=== PATIENT | male | born 1940 | race Caucasian/White ===

== ENCOUNTER 2016-12-23 10:48 | Day surgery (SDC) | payer OTHER ==
--- NOTE | 2016-12-23 07:25 | History and Physical ---
History & Physical Date of Service Dec 23, 2016. History & Physical CC: End stage renal disease HPI: states he is not yet on dialysis, but he has had slowly decreasing renal function and may need it sometime in the future. The patient is currently in a motorized wheelchair and does not ambulate. The patient denies any other complaints at this time including headaches, fevers, chills, dizziness, chest pain, shortness of breath, abdominal pain, nausea, vomiting, diarrhea, constipation, dysuria, hematuria, rest pain, claudication, nonhealing wounds or ulcers or other complaints. He had a left upper arm fistula placed which is not working well. He is here for a fistulogram with possible intervention. ALLERGIES: INCLUDE BACTRIM, BYETTA, CEFTIN, CIPROFLOXACIN, CUBICIN, ERYTHROMYCIN, HUMALOG, LATEX, NITROFURANTOIN, OMEPRAZOLE, OXYCODONE, PENICILLIN , PEPCID, PREVACID, PRILOSEC, SULFA DRUGS, TESTOSTERONE, TRIMETHOPRIM, ZAROXOLYN AND ZYVOX. His home medications are reconciled on the chart and include the following: Advair Diskus, albuterol, Anju, allopurinol, calcium and vitamin D, Cozaar, Cymbalta, diltiazem hydrochloride, Lantus, levothyroxine, mesalamine, metolazone , metoprolol, NovoLog, potassium, Pravachol, torsemide, vitamin D3, warfarin and Wellbutrin. PAST MEDICAL HISTORY: Positive for chronic anemia, anxiety, asthma, atrial fibrillation, end-stage renal disease, diastolic congestive heart failure, gout , hypertension, hypothyroidism, insulin-dependent diabetes mellitus, neuropathy , allergic rhinitis and vitamin D deficiency. PAST SURGICAL HISTORY: Positive for skin shave biopsies, multiple, back surgery , cardiac ablation, cholecystectomy, hemithyroidectomy hernia repair with mesh insertion, knee replacement, left elbow surgery, nose reconstruction, repair of left eye orbit, revision of knee and tonsillectomy. FAMILY HISTORY: Positive for Alzheimer disease in his mother, diabetes and hyperlipidemia in his sister, hyperlipidemia in a brother as well. SOCIAL HISTORY: Negative for tobacco, alcohol or drug use. REVIEW OF SYSTEMS: Negative for fatigue, fevers, sweats or weight loss, abnormal moles or rashes, vision changes or photophobia, ear pain, sinus problems or sore throat, cough, shortness of breath, hemoptysis or wheezing any worse than usual for him. He denies chest pain, palpitations or syncope. He does admit some bilateral lower extremity edema, which is chronic. He denies nausea, vomiting, diarrhea, constipation, dysuria, hematuria, headaches, dizziness, numbness or seizures. PHYSICAL EXAMINATION: His vital signs today were as follows: A blood pressure of 98/62 in the right arm, 102/68 in the left arm, heart rate is 68, respiratory rate is 20, and patient is 68 inches tall and weighs 372 pounds. Constitutional: In general, the patient is morbidly obese and chronically ill- appearing elderly male in no acute distress. He is currently in his motorized wheelchair and does not ambulate. He is active, alert and oriented x4 with a pretty normal recent and remote memory. There are some details, which his provides in the history taking portion of the exam. His head is normocephalic and atraumatic. His eyes are EOMI. His ENMT exam demonstrates no hearing loss , rhinorrhea or pharyngeal erythema. His neck is supple, nontender with midline trachea without masses or crepitus. His lung exam is decreased throughout, but essentially clear. His cardiovascular exam demonstrates a nondisplaced apical impulse with a regular rate and rhythm. He does have a 2/6 systolic ejection murmur. His peripheral pulses are full and equal in all extremities unless otherwise noted. Specifically, they are normal in his carotid, brachial and radial pulses. I am unable to assess his femoral pulses due to sitting up in a chair. His bilateral lower extremities distal pulses are +1. He has no bruits in his carotid or abdominal area. I am unable to assess his abdomen is difficult to assess as well due to body habitus and the fact that he is sitting up in a chair. His musculoskeletal exam demonstrates what it seems to be a normal tone and somewhat decreased strength throughout. His bilateral upper extremities demonstrate no cyanosis, edema, clubbing, varicosities or ulcers. There is a bruit and thrill present in the left upper arm fistual. His bilateral lower extremities do demonstrate 1-2+ edema. I do not see any large ulcerations and there is no gangrene. Neurologically, the patient has grossly intact cranial nerves and grossly intact sensation. ASSESSMENT AND PLAN: End-stage renal disease, not on hemodialysis. Malfunctioning left upper arm fistula Plan : Patient is admitted for a left antecubital cephalic vein fistulogram with possible intervention. I have discussed the risks options and benefits of the procedure with the patient. The patient understands the risks options and benefits and agrees to the procedure.
[~2016-12-23 10:48] MED LIST: ADVIN50/60 INH; ALBU0.08 INH; ALL100 PO; ALLO100T PO; BUPR-79 PO; CHOL100010 PO; CLINDAMYCIN 600 MG/54 ML D5W IV ONE; CLON0.5T3 PO; CYM/60 PO; D5W AND 1/4NSS 1,000 ML IV SCH; D5W AND 1/4NSS 1000 ML IV SCH; DILT-119 PO; DMD20 PO; ECON0.05 PO; FEXO1TAB49 PO; INSDGI SC; INSUINJ14 SC; LEVO75TA5 PO; LOSA100T65 PO; METO100T14 PO; METO5TAB25 PO; MULT-190 PO; PRAV20TA PO; SENN-65 PO; VANCOMYCIN INJ 2,500 MG in SODIUM CHLORIDE 0.9% 500ML 500 ML IV ONE; VTMD PO; WARF1TAB PO
[2016-12-28] MEDS ORDERED: INSU1INJ2 SQ (10:53)
[2017-03-17] MEDS ORDERED: VNCS125 PO (12:18)
== END 2016-12-23 12:00 | disposition home or self-care (01) ==
LOC: C.ACU 10:48
PROVIDERS: ATTEND Surgery Vascular Surgery
DX: E11.22 Type 2 diabetes mellitus with diabetic chronic kidney disease (principal); I13.2 Hypertensive heart and chronic kidney disease with heart failure and with stage 5 chronic kidney disease, or end stage renal disease; N18.6 End stage renal disease; I50.30 Unspecified diastolic (congestive) heart failure; Z53.8 Procedure and treatment not carried out for other reasons; Z99.2 Dependence on renal dialysis

== ENCOUNTER 2016-12-28 09:08 | Day surgery (SDC) | payer OTHER ==
[~2016-12-28] VITALS: Ht 172.7 cm; Wt 143.0 kg
--- NOTE | 2016-12-28 06:28 | History and Physical ---
History & Physical Date of Service Dec 28, 2016. History & Physical CC: End stage renal disease HPI: states he is not yet on dialysis, but he has had slowly decreasing renal function and may need it sometime in the future. The patient is currently in a motorized wheelchair and does not ambulate. The patient denies any other complaints at this time including headaches, fevers, chills, dizziness, chest pain, shortness of breath, abdominal pain, nausea, vomiting, diarrhea, constipation, dysuria, hematuria, rest pain, claudication, nonhealing wounds or ulcers or other complaints. He had a left upper arm fistula placed which is not working well. He is here for a fistulogram with possible intervention. ALLERGIES: INCLUDE BACTRIM, BYETTA, CEFTIN, CIPROFLOXACIN, CUBICIN, ERYTHROMYCIN, HUMALOG, LATEX, NITROFURANTOIN, OMEPRAZOLE, OXYCODONE, PENICILLIN , PEPCID, PREVACID, PRILOSEC, SULFA DRUGS, TESTOSTERONE, TRIMETHOPRIM, ZAROXOLYN AND ZYVOX. His home medications are reconciled on the chart and include the following: Advair Diskus, albuterol, Anju, allopurinol, calcium and vitamin D, Cozaar, Cymbalta, diltiazem hydrochloride, Lantus, levothyroxine, mesalamine, metolazone , metoprolol, NovoLog, potassium, Pravachol, torsemide, vitamin D3, warfarin and Wellbutrin. PAST MEDICAL HISTORY: Positive for chronic anemia, anxiety, asthma, atrial fibrillation, end-stage renal disease, diastolic congestive heart failure, gout , hypertension, hypothyroidism, insulin-dependent diabetes mellitus, neuropathy , allergic rhinitis and vitamin D deficiency. PAST SURGICAL HISTORY: Positive for skin shave biopsies, multiple, back surgery , cardiac ablation, cholecystectomy, hemithyroidectomy hernia repair with mesh insertion, knee replacement, left elbow surgery, nose reconstruction, repair of left eye orbit, revision of knee and tonsillectomy. FAMILY HISTORY: Positive for Alzheimer disease in his mother, diabetes and hyperlipidemia in his sister, hyperlipidemia in a brother as well. SOCIAL HISTORY: Negative for tobacco, alcohol or drug use. REVIEW OF SYSTEMS: Negative for fatigue, fevers, sweats or weight loss, abnormal moles or rashes, vision changes or photophobia, ear pain, sinus problems or sore throat, cough, shortness of breath, hemoptysis or wheezing any worse than usual for him. He denies chest pain, palpitations or syncope. He does admit some bilateral lower extremity edema, which is chronic. He denies nausea, vomiting, diarrhea, constipation, dysuria, hematuria, headaches, dizziness, numbness or seizures. PHYSICAL EXAMINATION: His vital signs today were as follows: A blood pressure of 98/62 in the right arm, 102/68 in the left arm, heart rate is 68, respiratory rate is 20, and patient is 68 inches tall and weighs 372 pounds. Constitutional: In general, the patient is morbidly obese and chronically ill- appearing elderly male in no acute distress. He is currently in his motorized wheelchair and does not ambulate. He is active, alert and oriented x4 with a pretty normal recent and remote memory. There are some details, which his provides in the history taking portion of the exam. His head is normocephalic and atraumatic. His eyes are EOMI. His ENMT exam demonstrates no hearing loss , rhinorrhea or pharyngeal erythema. His neck is supple, nontender with midline trachea without masses or crepitus. His lung exam is decreased throughout, but essentially clear. His cardiovascular exam demonstrates a nondisplaced apical impulse with a regular rate and rhythm. He does have a 2/6 systolic ejection murmur. His peripheral pulses are full and equal in all extremities unless otherwise noted. Specifically, they are normal in his carotid, brachial and radial pulses. I am unable to assess his femoral pulses due to sitting up in a chair. His bilateral lower extremities distal pulses are +1. He has no bruits in his carotid or abdominal area. I am unable to assess his abdomen is difficult to assess as well due to body habitus and the fact that he is sitting up in a chair. His musculoskeletal exam demonstrates what it seems to be a normal tone and somewhat decreased strength throughout. His bilateral upper extremities demonstrate no cyanosis, edema, clubbing, varicosities or ulcers. There is a bruit and thrill present in the left upper arm fistual. His bilateral lower extremities do demonstrate 1-2+ edema. I do not see any large ulcerations and there is no gangrene. Neurologically, the patient has grossly intact cranial nerves and grossly intact sensation. ASSESSMENT AND PLAN: End-stage renal disease, not on hemodialysis. Malfunctioning left upper arm fistula Plan : Patient is admitted for a left antecubital cephalic vein fistulogram with possible intervention. I have discussed the risks options and benefits of the procedure with the patient. The patient understands the risks options and benefits and agrees to the procedure.
[~2016-12-28 09:08] MED LIST changes: -CLINDAMYCIN 600 MG/54 ML D5W IV ONE; +CLINDAMYCIN 600 MG/54 ML D5W IV SCH; -D5W AND 1/4NSS 1,000 ML IV SCH; +VANCOMYCIN 1GM/270ML NSS IV ONE; +VANCOMYCIN 1GM/270ML NSS IV SCH; -VANCOMYCIN INJ 2,500 MG in SODIUM CHLORIDE 0.9% 500ML 500 ML IV ONE; +[UNRECOGNIZED DRUG - REMARK] SCH
--- NOTE | 2016-12-28 09:45 | History & Physical Bridge Note ---
H&P Re-Evaluation Bridge Note: I have examined the patient, reviewed the History & Physical and in the interval since the performance of the History & Physical I have noted the following changes of clinical significance: No changes noted
--- NOTE | 2016-12-28 09:45 | Procedure Note ---
Pre-Mod Sedation Assessment General Date of Moderate Sedation: Dec 28, 2016. Pre-Sedation Airway Assessment Smoking Status: Never Smoker Mallampati Classification: Class I ASA Classification: Class III Notes The planned sedation has been discussed with the patient and consent obtained. I have identified the patient, determined the appropriateness of sedation and have assessed the patient immediately prior to the procedure. All medicine(s) and interventions are by my order.
[2016-12-28] MEDS ORDERED: NURSING VERBAL MED ORDER ONE ×2 (10:00)
[2016-12-28] MEDS ORDERED: DiphenhydrAMINE HCL 50 MG/ML VIAL ONE (10:02)
[2016-12-28] MEDS ORDERED: INSU1INJ2 (10:53)
[2016-12-28 10:56] LABS: INR 2.6 (0.9-1.1); PROTHROMBIN TIME (PATIENT) 29.1 SECONDS (9.0-12.0)
[2016-12-28] MEDS ORDERED: [UNRECOGNIZED DRUG - OTHER] PO (10:57)
[2016-12-28] MEDS ORDERED: SEVE800T7 PO (10:57)
[2016-12-28] MEDS ORDERED: B-CO1CAP3 PO (10:57)
[2016-12-28] MEDS ORDERED: [UNRECOGNIZED DRUG - CODE] (10:57)
[2016-12-28] MEDS ORDERED: B-CO1TAB73 PO (10:58)
[2016-12-28 10:59] VITALS: BP 76/60; PULSE 83; TEMP 36.5; O2SAT 92; Ht 172.7 cm; Wt 143.0 kg
[2016-12-28] MEDS ORDERED: MIDAZOLAM HCL 1 MG/ML 2ML VIAL ONE (12:29)
[2016-12-28] MEDS ORDERED: FENTANYL CITRATE INJ 50 MCG/1 ML 2 ML VIAL ONE (12:29)
[2016-12-28] MEDS ORDERED: LIDOCAINE HCL 1% 20 ML VIAL INJ ONE (13:41)
[2016-12-28] MEDS ORDERED: OPTIRAY 300 IV ONE (14:05)
--- NOTE | 2016-12-28 14:11 | [facility] Post Operative Brief Note ---
Immediate Operative Summary Operative Date Dec 28, 2016. Pre-Operative Diagnosis malfunctioning fistula Post-Operative Diagnosis same Procedure(s) Performed Fistulogram, Embolization Of Venous Branch with 12 mm Amplatz Plug Surgeon Dr. Álvarez Biological Engineer Surgeon(s) none Estimated Blood Loss 5 ml Findings large branch embolized Specimens none Anesthesia Local Complication(s) None Disposition
--- NOTE | 2016-12-28 14:14 | Discharge Instructions ---
Discharge Instructions Date of Service Dec 28, 2016. Visit Reason for Visit: End Stage Renal Disease; Malfunctioning Fistula Discharge Discharge Diagnosis / Problem: Malfunctioning fistula Discharge Goals Goal(s): Therapeutic intervention Activity Recommendations Activity Limitations: resume your previous activity Anesthesia . Post Anesthesia Instructions: If you have had General Anesthesia or IV Sedation: * Do not drive today. * Resume driving when surgeon permits. * Do not make important decisions or sign legal documents today. * Call surgeon for: 1. Temperature elevations greater than 101 degrees F. 2. Uncontrollable pain. 3. Excessive bleeding. 4. Persistent nausea and vomiting. 5. Medication intolerance (nausea, vomiting or rash). * For nausea and vomiting use only clear liquids such as: tea, soda, bouillon until nausea subsides, then gradually increase diet as tolerated. * If you have any concerns or questions, call your surgeon's office. If physician is unavailable and it is an emergency, call 911 or go to the nearest emergency room. . Instructions / Follow-Up Instructions / Follow-Up Call [phone] to schedule a follow up appointment if one not already scheduled. SPECIAL CARE INSTRUCTIONS: Medications: * Continue to take your medications as directed. If you have been given a prescription for Plavix, please fill it immediately and take as directed. Incision Care: * Your puncture site may have some bruising and minor swelling for about one week. * You will have a small dressing covering your puncture site. You may remove the dressing after 24 hours and shower. You may let the warm soapy water run over it, but be sure to dry the puncture site well and keep it dry. * DO NOT IMMERSE THE INCISION IN A TUB/POOL/etc. UNTIL HEALED. * Puncture sites should be kept covered with a band-aid until it begins to heal. Restrictions: * Depending on whether you leg or arm was punctured to access the arteries, you will be required to lay flat, hold your arm still, or both, for about 4 hours after the procedure to prevent bleeding. * Limit your activity for the first 48 hours. You may walk and go up and down steps. Avoid excessive bending or movement at the puncture site. Possible Complications: * Excessive Swelling - after blood flow is improved you may notice increased swelling in the lower legs. This is a normal response. This usually depends on the amount of blockages in the leg, how long they have been there prior to your procedure and how much blood flow was restored. Elevating your legs will help to improve this. Please notify our office ([phone] ) if the swelling does not go away after lying in bed overnight. * Infection/Drainage/Bleeding - Drainage or bleeding from the puncture site should be minimal. If you have excessive bleeding or drainage, call our office ([phone]) right away. * Pain - You may experience some mild pain or soreness at your puncture site. If your pain does not improve, please contact our office ([phone]). Call your doctor and seek emergent treatment if you develop: * Temperature above 101 degrees * Any fever or chills * Any redness or purulent drainage from the puncture site * Any new dusky/blue colored toes or feet with coolness or sharp or aching pain. SKIN IRRITATION: * You may experience some redness and/or swelling in the area where radiation was administered. If any skin irritation occurs, please contact your family physician. FOLLOW UP VISIT: Keep any scheduled doctor appointments. Diet Recommendations Recommended Home Diet: resume previous diet Procedures Procedures Performed: Fistulogram, Embolization Of Venous Branch with 12 mm Amplatz Plug Pending Studies Studies pending at discharge: no Medical Emergencies . Who to Call and When: Medical Emergencies: If at any time you feel your situation is an emergency, please call 911 immediately. . Non-Emergent Contact Non-Emergency issues call your: Surgeon . . "Provider Documentation" section prepared by Antoni Álvarez. .
[2016-12-28 14:20] VITALS: BP 97/61; PULSE 95; TEMP 36.5; O2SAT 95
--- NOTE | 2016-12-28 14:27 | [facility] Operative Report ---
Operative Report Operative Date Dec 28, 2016. Pre-Operative Diagnosis malfunctioning fistula Post-Operative Diagnosis same Procedure(s) Performed Fistulogram, Embolization Of Venous Branch with 12 mm Amplatz Plug Surgeon Dr. Álvarez Pulp Screen Operator Surgeon(s) none Estimated Blood Loss 5 ml Findings large branch embolized Specimens none Anesthesia Local Complication(s) None Disposition Indications This is a 76-year-old male with a left upper arm fistula. He is having problems with cannulation and runs during dialysis. Fistulogram was recommended. He understood the risks options benefits and agreed to go ahead with this procedure. Interventional will be done if indicated at the time of the fistulogram. Description of Procedure The patient was taken to the angiogram suite and placed in supine position. The left arm was then prepped and draped in a sterile manner. Local anesthetic was administered. A percutaneous puncture was made of the proximal left upper arm fistula using micropuncture technique. A micropuncture sheath was inserted. A fistulogram was performed. This showed the fistula be widely patent from the arterial anastomosis all the way through to the superior vena cava. A large branch was present coming off the fistula approximately 10 cm from the arterial anastomosis. This branch measured 8.8 mm in size. Patient was decided to embolize this branch of the fistula. The micropuncture sheath was then exchanged for a 5 Nepali sheath. Using a rim catheter and a Glidewire the branch was cannulated. The rim catheter is passed all the way down the branch to the basilic vein. I wire was exchanged to a 035 stiffened Glidewire. The rim catheter was removed. The 5 Nepali sheath was exchanged to a 6 Nepali destination. The destination sheath tip was in the large branch approximately just below the level of the elbow. The wire was then removed. A 12 mm Amplatzer plug was then passed through the 6 Nepali sheath and deployed into this large branch. It was deployed just below the antecubital crease. The wire was released from the plug and the wire removed. Completion fistulogram showed the plug to be in good position in the branch and abutting against the vein wall. The destination sheath was then pulled and pressure was applied. Adequate hemostasis was then obtained. A sterile dressing was applied to the wound. Patient left the angiogram suite in good condition and tolerated the procedure well. I attest to the content of the Intraoperative Record and any orders documented therein. Any exceptions are noted below.
[2016-12-28 14:35] VITALS: BP 103/63; PULSE 90; O2SAT 98
[2016-12-28 14:55] VITALS: BP 107/51; PULSE 82; TEMP 36.6; O2SAT 97
[2016-12-28 15:25] VITALS: BP 97/56; PULSE 86; O2SAT 98
== END 2016-12-28 15:30 | disposition home or self-care (01) ==
LOC: C.ACU 09:08
PROVIDERS: ATTEND Surgery Vascular Surgery
DX: T82.898A Other specified complication of vascular prosthetic devices, implants and grafts, initial encounter (principal); N18.6 End stage renal disease; I48.2 Chronic atrial fibrillation; F41.9 Anxiety disorder, unspecified; J45.909 Unspecified asthma, uncomplicated; M10.9 Gout, unspecified; I12.0 Hypertensive chronic kidney disease with stage 5 chronic kidney disease or end stage renal disease; E10.9 Type 1 diabetes mellitus without complications; E55.9 Vitamin D deficiency, unspecified; Z79.01 Long term (current) use of anticoagulants; Z90.49 Acquired absence of other specified parts of digestive tract; E89.0 Postprocedural hypothyroidism; Z96.659 Presence of unspecified artificial knee joint; Z90.89 Acquired absence of other organs; Y82.8 Other medical devices associated with adverse incidents; Z99.3 Dependence on wheelchair; Z82.49 Family history of ischemic heart disease and other diseases of the circulatory system; Z82.0 Family history of epilepsy and other diseases of the nervous system; I50.30 Unspecified diastolic (congestive) heart failure; Z79.4 Long term (current) use of insulin; E11.40 Type 2 diabetes mellitus with diabetic neuropathy, unspecified

== ENCOUNTER 2017-03-13 10:11 | Inpatient (IN) | payer OTHER ==
[~2017-03-13] VITALS: Ht 172.7 cm; Wt 136.8 kg
[~2017-03-13 10:11] MED LIST changes: -ALLO100T PO; +B-CO1CAP3 PO; +B-CO1TAB73 PO; -CHOL100010 PO; -CLINDAMYCIN 600 MG/54 ML D5W IV SCH; -CLON0.5T3 PO; -D5W AND 1/4NSS 1000 ML IV SCH; -DMD20 PO; +INSU1INJ2 SQ; -INSUINJ14 SC; -LOSA100T65 PO; -METO5TAB25 PO; -MULT-190 PO; +SEVE800T7 PO; -VANCOMYCIN 1GM/270ML NSS IV ONE; -VANCOMYCIN 1GM/270ML NSS IV SCH; +[UNRECOGNIZED DRUG - CODE]; -[UNRECOGNIZED DRUG - REMARK] SCH
[2017-03-13 14:58] VITALS: BP 105/56; PULSE 90; TEMP 36.7; O2SAT 98
[2017-03-13] MEDS ORDERED: POLYETHYLENE (MIRALAX) 17 GM PACK PO PRN (15:30)
[2017-03-13] MEDS ORDERED: ACETAMINOPHEN 325 MG TAB PO PRN (15:30)
[2017-03-13] MEDS ORDERED: DEXTROSE 50% 50 ML SYR IV PRN (15:30)
[2017-03-13] MEDS ORDERED: GLUCAGON FOR INJ 1 MG VIAL SQ PRN (15:30)
[2017-03-13] MEDS ORDERED: GLUCOSE 10 TABS/TUBE PO PRN (15:30)
[2017-03-13] MEDS ORDERED: ONDANSETRON INJ 2 MG/ML 2 ML VIAL IV PRN (15:30)
[2017-03-13] MEDS ORDERED: HEPARIN SOD 5000 UNIT/0.5 ML CARP SQ SCH (15:30)
[2017-03-13] MEDS ORDERED: GLUCOSE 40% GEL 15 GM TUBE PO PRN (15:30)
[2017-03-13 16:08] LABS: HEMATOCRIT 30.5 % (42-52); MEAN CELL VOLUME 93.3 fL (80-100); MEAN CORPUSCULAR HGB CONC 32.1 g/dl (32-36); MEAN PLATELET VOLUME 8.6 fL (7.4-10.4); PLATELET COUNT 236 K/uL (130-400); RED BLOOD COUNT 3.27 M/uL (4.7-6.1); WHITE BLOOD COUNT 7.74 K/uL (4.8-10.8)
[2017-03-13 16:24] LABS: PROTHROMBIN TIME (PATIENT) 80.3 SECONDS (9.0-12.0)
[2017-03-13 16:34] LABS: INR 6.9 (0.9-1.1)
[2017-03-13 16:41] LABS: ALB/GLOB RATIO 0.5 (0.9-2); ALKALINE PHOSPHATASE 128 U/L (45-117); ALT/SGPT 22 U/L (12-78); AST/SGOT 10 U/L (15-37); BLOOD UREA NITROGEN 49 mg/dl (7-18); BUN/CREATININE RATIO 8.3 (10-20); CALCIUM 8.8 mg/dl (8.5-10.1); CARBON DIOXIDE 30 mmol/L (21-32); CHLORIDE 101 mmol/L (98-107); GLUCOSE 199 mg/dl (70-99); POTASSIUM 3.8 mmol/L (3.5-5.1); SODIUM 138 mmol/L (136-145)
[2017-03-13] MEDS ORDERED: LORAZEPAM INJ 0.5 MG in SYRINGE 0.75 ML IV STA (16:44)
[2017-03-13] MEDS ORDERED: PHYTONADIONE 5 MG TAB PO ONE (16:45)
[2017-03-13] MEDS ORDERED: DILT-115 PO (16:55)
[2017-03-13] MEDS ORDERED: LORAZEPAM 1 MG TAB PO STA (16:58)
[2017-03-13] MEDS ORDERED: METO1TAB68 PO (17:07)
[2017-03-13] MEDS ORDERED: ATV/1 PO (17:12)
[2017-03-13 17:15] VITALS: BMI 46.9
[2017-03-13] MEDS ORDERED: SEVELAMER HYDROCH 800 MG TAB PO PRN (17:15)
[2017-03-13] MEDS ORDERED: ECONAZOLE NITRATE 1% CRM 15 GM TUBE EXT PRN (17:15)
[2017-03-13] MEDS ORDERED: DOCUSATE SODIUM/SENNA 50/8.6MG TAB PO PRN (17:15)
--- NOTE | 2017-03-13 17:16 | History and Physical ---
History & Physical Date & Time of Service: Mar 13, 2017 at 17:15 Chief Complaint: Esrd (End Stage Renal Disease) On Dialysis Primary Care Physician: Ally Oviedo History of Present Illness Source: patient, spouse, clinic records, hospital records 77 yo M who undergoes HD MWF went for HD on Tuesday and was unable to complete 4 hour dialysis session 2/2 a nonworking fistula. His give most of the history and states that he had been lying with his hand over his head and when he brought his L arm back down, there was "infiltration" of the IV that when recannulated, began bleeding. There has been reports of temporary bleeding from the fistula site with the last few HD sessions and just this morning he had some blood in his mouth that resolved when he flushed it out with water. INR was found to be 6.9, coumadin was held and he was given vitamin K. He has otherwise been asymptomatic except for some nausea and occasional vomiting with eating, for which he has been using Zofran at home. And then his also reports a foul odor and description of his urine in the last few weeks and states that he no longer self-catheterizes now that he is on HD. We discussed placing a Weinberg and the thought that was a good idea. The patient does report some lower abdominal discomfort on palpation over his bladder area and the reports a decreased urine output in the last few weeks, also. The patient denies weight gain, shortness of breath, chest pain, fevers, chills, diarrhea, blood per rectum or other symptoms at this time. Of note, he was here in December for a coil placement in the fistula when it was not working; this coil is palpable and not in the right place distal to the fistula. Past Medical/Surgical History Medical Problems: (1) Ambulatory dysfunction Status: Chronic (2) Anxiety Status: Chronic (3) Chronic diastolic (congestive) heart failure Status: Chronic (4) Current use of [facility] anticoagulation Status: Chronic (5) Depression Status: Chronic (6) DMII (diabetes mellitus, type 2) Status: Chronic (7) H/O endocarditis Status: Chronic (8) H/O spinal stenosis Status: Chronic (9) Hypothyroidism Status: Chronic (10) Neurogenic bladder Status: Chronic (11) ELLEN on CPAP Status: Chronic (12) PAF (paroxysmal atrial fibrillation) Status: Chronic (13) Vitamin D deficiency Status: Chronic Surgical Problems: (1) S/P partial thyroidectomy Status: Chronic (2) Status post total knee replacement, right Status: Chronic Family History FH: Alzheimers disease MOTHER FH: HTN (hypertension) BROTHER SISTER FH: cirrhosis SISTER FHx: myocardial infarction male first degree age known FATHER (early 60s) Social History Smoking Status: Never Smoker Smokeless Tobacco Use: No Alcohol Use: none Drug Use: none Marital Status: Housing status: lives with significant other Occupational Status: retired Immunizations History of Influenza Vaccine: Yes Influenza Vaccine Date: Mar 02, 2017 History of Tetanus Vaccine?: Yes Tetanus Immunization Date: Mar 20, 2012 History of Pneumococcal: Yes Pneumococcal Date: May 30, 2015 History of Hepatitis B Vaccine: No Multi-Drug Resistant Organisms History of MDRO: Yes Type of MDRO: MRSA Allergies Coded Allergies: Penicillins (Verified Allergy, Severe, anaphylaxis, 12/28/16) Sulfa Drugs (Verified Allergy, Severe, BACTRIM = ANAPHYLAXIS, PT TOOK DURING 12/28 ADMISSION W/O RXN, 12/28/16) Cefuroxime (Verified Allergy, Intermediate, RASH, 12/28/16) Famotidine (Verified Allergy, Intermediate, SHORTNESS OF BREATH, 12/28/16) Latex (Verified Allergy, Mild, RASH, 12/28/16) Cephalosporins (Verified Allergy, Unknown, RASH, 12/28/16) Ciprofloxacin (Verified Allergy, Unknown, RASH, 12/28/16) Clindamycin (Verified Allergy, Unknown, SHORTNESS OF BREATH, tingling, 05/06) Daptomycin (Verified Allergy, Unknown, unknown, 12/28/16) Insulin Lispro (Verified Allergy, Unknown, CAUSED HYPERGLYCEMIA, 12/28/16) Linezolid (Verified Allergy, Unknown, RASH, 12/28/16) Nitrofurantoin (Verified Allergy, Unknown, HIVES, rash, 12/28/16) Omeprazole (Verified Allergy, Unknown, loss of motor function, disoriented , 12/28/16) Oxycodone (Verified Allergy, Unknown, altered mental state, 12/28/16) Phenol (Verified Allergy, Unknown, CAUSED HYPERGLYCEMIA, 12/28/16) Trimethoprim (Verified Allergy, Unknown, impaired renal function, 12/28/16) Erythromycin (Verified Adverse Reaction, Intermediate, JAUNDICE, 12/28/16) Metolazone (Verified Adverse Reaction, Intermediate, ELEVATED BUN, pt is still taking, 12/28/16) Home Medications Scheduled Allopurinol (Zyloprim *), 100 MG PO DAILY B-Complex W/ C & Folic Acid (Renal Vitamin 0.8 mg), 1 PO HS Bupropion (Wellbutrin Sr), 300 MG PO QAM Bupropion (Wellbutrin Sr), 150 MG PO HS Diltiazem Hcl Ext Rel (Tiazac), 240 MG PO DAILY Duloxetine HCl (Cymbalta), 60 MG PO HS Ergocalciferol (Vitamin D), 1 CAP PO WK Fexofenadine Hcl (Anju Allergy), 1 TAB PO HS Fluticasone Prop/Salmeterol (Advair Diskus 500/50 60 Dose), 1 PUFF INH BID Insulin Aspart (Novolog Penfill), 0 SQ UD Insulin Glargine (Lantus), 60 UNITS SC HS Levothyroxine Sodium (Levothyroxine Sodium), 1 TAB PO QAM Metoprolol Succinate (Toprol Xl), 1 TAB PO HS Pravastatin Sodium (Pravachol), 10 MG PO HS Sevelamer Carbonate (Renvela), 2 TAB PO TID Warfarin Sodium (Coumadin), 2.5 MG PO HS [Nepo ], 1 CAN HS Scheduled PRN Albuterol Soln (Proventil 0.083% 2.5MG/3ML), 2.5 MG INH QID PRN for SOB/Wheezing Econazole Nitrate 1% (Spectazole 1%), 1 DOSE PO DAILY PRN for PRN Lorazepam (Ativan), 1 MG PO TID PRN for Anxiety/Agitation Senna/Docusate Sod (Senokot S), 1 TAB PO QAM PRN for Constipation Review of Systems At least ten systems reviewed and negative except as indicated in HPI. Physical Exam Vital Signs Date Time Temp Pulse Resp B/P (MAP) Pulse Ox O2 Delivery O2 Flow Rate FiO2 03/13/17 14:58 36.7 90 20 105/56 (72) 98 Room Air General Appearance: no apparent distress, + obese Head: normocephalic, atraumatic Eyes: normal inspection, sclerae normal Neck: no JVD, trachea midline Respiratory/Chest: lungs clear, normal breath sounds, no respiratory distress, no accessory muscle use Cardiovascular: regular rate, rhythm, no edema, no gallop, no murmur, normal peripheral pulses Abdomen/GI: normal bowel sounds, soft, + tenderness (suprapubic jerald. ) Back: + pertinent finding (could not evaluate back as patient cannot turn on his own and uses [place] lift. ) Extremities/Musculoskelatal: no pedal edema, + pertinent finding (LUE fistula with palpable thrill; palpable coil in place just distal to elbow. Large area of bruising and hardness over L biceps. 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 tested, alert, normal mood/affect, oriented x 3, + pertinent finding (decreased strength generally) Skin: normal color, warm/dry, + pertinent finding (RLE lateral malleolar wound) Diagnostics Laboratory Results 03/13/17 15:53 03/13/17 15:53 Test 03/13/17 15:53 03/13/17 16:35 03/13/17 16:37 Red Blood Count 3.27 M/uL (4.7-6.1) Mean Corpuscular Volume 93.3 fL (80-100) Mean Corpuscular Hemoglobin 30.0 pg (25-34) Mean Corpuscular Hemoglobin Concent 32.1 g/dl (32-36) RDW Standard Deviation 57.8 fL (36.4-46.3) RDW Coefficient of Variation 17.1 % (11.5-14.5) Mean Platelet Volume 8.6 fL (7.4-10.4) Nucleated RBC Absolute Count (auto) 0.04 K/uL (0-0) Nucleated Red Blood Cells % 0.5 % Prothrombin Time 80.3 SECONDS (9.0-12.0) Prothromb Time International Ratio 6.9 (0.9-1.1) Anion Gap 7.0 mmol/L (3-11) Estimated GFR () 9.7 Estimated GFR (Non- 8.4 BUN/Creatinine Ratio 8.3 (10-20) Calcium Level 8.8 mg/dl (8.5-10.1) Total Bilirubin 0.4 mg/dl (0.2-1) Aspartate Amino Transf (AST/SGOT) 10 U/L (15-37) Alanine Aminotransferase (ALT/SGPT) 22 U/L (12-78) Alkaline Phosphatase 128 U/L (45-117) Total Protein 6.4 gm/dl (6.4-8.2) Albumin 2.1 gm/dl (3.4-5.0) Globulin 4.3 gm/dl (2.5-4.0) Albumin/Globulin Ratio 0.5 (0.9-2) Bedside Glucose 194 mg/dl (70-99) Date/Time Source Procedure Growth Status 03/13/17 16:37 Urine,Catheterized Urine Culture Pending Ordered Results Past 24 Hours Test 03/13/17 15:53 03/13/17 16:35 03/13/17 16:37 03/13/17 17:12 Range/Units White Blood Count 7.74 4.8-10.8 K/uL Red Blood Count 3.27 4.7-6.1 M/uL Hemoglobin 9.8 14.0-18.0 g/dL Hematocrit 30.5 42-52 % Mean Corpuscular Volume 93.3 80-100 fL Mean Corpuscular Hemoglobin 30.0 25-34 pg Mean Corpuscular Hemoglobin Concent 32.1 32-36 g/dl RDW Standard Deviation 57.8 36.4-46.3 fL RDW Coefficient of Variation 17.1 11.5-14.5 % Platelet Count 236 130-400 K/uL Mean Platelet Volume 8.6 7.4-10.4 fL Nucleated RBC Absolute Count (auto) 0.04 0-0 K/uL Nucleated Red Blood Cells % 0.5 % Prothrombin Time 80.3 9.0-12.0 SECONDS Prothromb Time International Ratio 6.9 0.9-1.1 Sodium Level 138 136-145 mmol/L Potassium Level 3.8 3.5-5.1 mmol/L Chloride Level 101 98-107 mmol/L Carbon Dioxide Level 30 21-32 mmol/L Anion Gap 7.0 3-11 mmol/L Blood Urea Nitrogen 49 7-18 mg/dl Creatinine 5.90 0.60-1.40 mg/dl Estimated GFR () 9.7 Estimated GFR (Non- 8.4 BUN/Creatinine Ratio 8.3 10-20 Random Glucose 199 70-99 mg/dl Calcium Level 8.8 8.5-10.1 mg/dl Total Bilirubin 0.4 0.2-1 mg/dl Aspartate Amino Transf (AST/SGOT) 10 15-37 U/L Alanine Aminotransferase (ALT/SGPT) 22 12-78 U/L Alkaline Phosphatase 128 45-117 U/L Total Protein 6.4 6.4-8.2 gm/dl Albumin 2.1 3.4-5.0 gm/dl Globulin 4.3 2.5-4.0 gm/dl Albumin/Globulin Ratio 0.5 0.9-2 Bedside Glucose 194 70-99 mg/dl Microbiology Results 03/13/17 Urine Culture, Ordered Pending Diagnostic Radiology CXR pending EKG EKG pending Impression Assessment and Plan 77 yo M with ESRD on HD presents as a direct admission with a non-working fistula during HD on Tuesday. 1. Non-working fistula-uncertain of issue, has a supratherapeutic INR with reports of intermittent bleeding in recent days. There is a palpable thrill present on exam. There is a palpable coil in place just distal to the fistula. Consult Vascular Surgery for assistance. 2. ESRD-on HD. HD session on Tuesday was cut short 2/2 nonworking fistula. Nephro consulted for assistance with inpatient HD. Cont Sevelamer and renal diet. 3. Supratherapeutic INR-pt is not currently bleeding but does have bruising and reports of intermittent bleeding per over the past couple of weeks. As he is not actively bleeding at the moment, will give vit K 2.5mg now and hold warfain dosing until INR comes back into range. 4. Anemia 2/2 acute blood loss and ESRD (anemia of CKD) and ACD-no acute indication for transfusion at this time and no active bleeding. Repeat H/H in am. Normal PLTs. Holding coumadin as above. 5. Nausea with food-poss related to abdominal discomfort which appears consistent with urinary retention vs poss UTI from the description. Weinberg placed will monitor I/Os and reassess abdominal discomfort/nausea. Cont Zofran for supportive care for now. 6. Urinary retention-the pt is obese with a h/o neurogenic bladder and self- cathing ever since beginning HD. reports a foul smelling urine that is greenish and states that his urine output has decreased in recent weeks. Placing Weinberg for accurate I/Os, to relieve pressure on the abdomen and to obtain an accurate sample of urine to check for infection. 7. ELLEN-CPAP ordered 8. DMII-ISS, carb coverage and Lantus ordered. Note that weight is being done through bedscale and therefore is less accurate. Insulin may need frequent readjustment. Consulting glycemic pharmacist for recs. A1C ordered. 9. Hypothyroidism-cont Synthroid, TSH pending. 10. Chronic diastolic heart failure-compensated. DVT [id number] is contraindicated with supratherapeutic INR. Full Code-verified with patient and his on admission. Dispo-med/surg DO Seferino Rodríguez Hospitalist Level of Care Med/Surg Resuscitation Status FULL RESUSCITATION VTE Prophylaxis VTE Risk Assessment Done? Y/N: Yes Risk Level: Moderate Given or contraindicated: SCD's
[2017-03-13 17:33] VITALS: BP 105/56; PULSE 90; TEMP 36.7; O2SAT 98; Ht 172.7 cm; Wt 136.8 kg
[2017-03-13] MEDS ORDERED: LIDOCAINE HCL 2% JELLY 30 ML TUBE EXT ONE ×3 (17:52→19:46)
[2017-03-13 17:59] LABS: MAGNESIUM 2.5 mg/dl (1.8-2.4); PHOSPHORUS 2.9 mg/dl (2.5-4.9); THYROID STIMULATING HORMONE 1.26 uIu/ml (0.300-4.500)
[2017-03-13] MEDS ORDERED: PHARMACY GLYCEMIC MGMT CONSULT PRN (18:06)
--- NOTE | 2017-03-13 19:44 | Urology Consultation ---
History General Date of Service: Mar 13, 2017. Chief Complaint: Possible UTI, inability to place sanchez Primary Care Physician: Ally Oviedo Pt seen a urologist before?: Yes If yes, why?: Dr Rojas for CAP History of Present Illness 77 yo male with a history of CAP, s/p XRT, now with NGB and CIC at home. He is here due to arm pain, questionable issues with fistula for ESRD HD dependent. He is felt to have foul urine, difficulty with catheterization placement - sanchez desired for possible UTI and I&Os for renal failure. consultation requested to assist. Past notes reviewed. He notes he has been seen by Dr. Rojas this past summer for his care. He notes it has been years since his last cystoscopy, outside records not available. No new abdominal imaging this admission. Laboratory Last 24 Hours Test 03/13/17 15:53 03/13/17 16:35 03/13/17 16:37 White Blood Count 7.74 K/uL Red Blood Count 3.27 M/uL Hemoglobin 9.8 g/dL Hematocrit 30.5 % Mean Corpuscular Volume 93.3 fL Mean Corpuscular Hemoglobin 30.0 pg Mean Corpuscular Hemoglobin Concent 32.1 g/dl RDW Standard Deviation 57.8 fL RDW Coefficient of Variation 17.1 % Platelet Count 236 K/uL Mean Platelet Volume 8.6 fL Nucleated RBC Absolute Count (auto) 0.04 K/uL Nucleated Red Blood Cells % 0.5 % Prothrombin Time 80.3 SECONDS Prothromb Time International Ratio 6.9 Sodium Level 138 mmol/L Potassium Level 3.8 mmol/L Chloride Level 101 mmol/L Carbon Dioxide Level 30 mmol/L Anion Gap 7.0 mmol/L Blood Urea Nitrogen 49 mg/dl Creatinine 5.90 mg/dl Estimated GFR () 9.7 Estimated GFR (Non- 8.4 BUN/Creatinine Ratio 8.3 Random Glucose 199 mg/dl Calcium Level 8.8 mg/dl Phosphorus Level 2.9 mg/dl Magnesium Level 2.5 mg/dl Total Bilirubin 0.4 mg/dl Aspartate Amino Transf (AST/SGOT) 10 U/L Alanine Aminotransferase (ALT/SGPT) 22 U/L Alkaline Phosphatase 128 U/L Total Protein 6.4 gm/dl Albumin 2.1 gm/dl Globulin 4.3 gm/dl Albumin/Globulin Ratio 0.5 Thyroid Stimulating Hormone (TSH) 1.260 uIu/ml Bedside Glucose 194 mg/dl Past History A Fib, arthritis, cancer - prostate, congestive heart failure, COPD, depression , diabetes, GERD, renal disease, other (neurogenic bladder, CIC dependent, sleep apnea, neuropathy) Past Surgical History: cholecystectomy, tonsillectomy, other (cystoscopy, fistula, hernia, knee surgery) Family History FH: Alzheimers disease MOTHER FH: HTN (hypertension) BROTHER SISTER FH: cirrhosis SISTER FHx: myocardial infarction male first degree age known FATHER (early 60s) Social History Hx Tobacco Use In Past Year?: No Smoking: non-smoker Alcohol: no current use Marital status: Housing status: lives with significant other Occupation status: retired Immunizations History of Influenza Vaccine: Yes Influenza Vaccine Date: Mar 02, 2017 History of Tetanus Vaccine?: Yes Tetanus Immunization Date: Mar 20, 2012 History of Pneumococcal: Yes Pneumococcal Date: May 30, 2015 History of Hepatitis B Vaccine: No History of MDRO Yes Type of MDRO: MRSA Allergies Coded Allergies: Penicillins (Verified Allergy, Severe, anaphylaxis, 12/28/16) Sulfa Drugs (Verified Allergy, Severe, BACTRIM = ANAPHYLAXIS, PT TOOK DURING 12/28 ADMISSION W/O RXN, 12/28/16) Cefuroxime (Verified Allergy, Intermediate, RASH, 12/28/16) Famotidine (Verified Allergy, Intermediate, SHORTNESS OF BREATH, 12/28/16) Latex (Verified Allergy, Mild, RASH, 12/28/16) Cephalosporins (Verified Allergy, Unknown, RASH, 12/28/16) Ciprofloxacin (Verified Allergy, Unknown, RASH, 12/28/16) Clindamycin (Verified Allergy, Unknown, SHORTNESS OF BREATH, tingling, 05/06) Daptomycin (Verified Allergy, Unknown, unknown, 12/28/16) Insulin Lispro (Verified Allergy, Unknown, CAUSED HYPERGLYCEMIA, 12/28/16) Linezolid (Verified Allergy, Unknown, RASH, 12/28/16) Nitrofurantoin (Verified Allergy, Unknown, HIVES, rash, 12/28/16) Omeprazole (Verified Allergy, Unknown, loss of motor function, disoriented , 12/28/16) Oxycodone (Verified Allergy, Unknown, altered mental state, 12/28/16) Phenol (Verified Allergy, Unknown, CAUSED HYPERGLYCEMIA, 12/28/16) Trimethoprim (Verified Allergy, Unknown, impaired renal function, 12/28/16) Erythromycin (Verified Adverse Reaction, Intermediate, JAUNDICE, 12/28/16) Metolazone (Verified Adverse Reaction, Intermediate, ELEVATED BUN, pt is still taking, 12/28/16) Medications Home Medications: Home Meds and Scripts Medications Dose Route/Sig Max Daily Dose Days Date Category Dose Instructions Ativan (Lorazepam) 1 Mg Tab 1 Mg PO TID PRN 03/13/17 Reported Toprol Xl (Metoprolol Succinate) 100 Mg Tab 1 Tab PO HS 03/13/17 Reported Tiazac (Diltiazem HCl) 240 Mg Capcr 240 Mg PO DAILY 03/13/17 Reported Renal Vitamin 0.8 mg (B-Complex W/ C & Folic Acid) 1 Tab Tab 1 PO HS 12/28/16 Reported [Nepo ] 1 Can HS 12/28/16 Reported Renvela (Sevelamer Carbonate) 800 Mg Tab 2 Tab PO TID 90 12/28/16 Reported 2 WITH EACH MEAL AND 1 WITH EACH SNACK Novolog Penfill (Insulin Aspart) 100 Unit/Ml Inj 0 SQ UD 12/28/16 Reported Cymbalta (Duloxetine HCl) 60 Mg Cap 60 Mg PO HS 12/11/15 Reported Wellbutrin Sr (Bupropion HCl) 150 Mg Ertab 150 Mg PO HS 12/11/15 Reported Wellbutrin Sr (Bupropion HCl) 150 Mg Ertab 300 Mg PO QAM 12/11/15 Reported Anju Allergy (Fexofenadine Hcl) 180 Mg Tab 1 Tab PO HS 14 12/11/15 Reported Proventil 0.083% 2.5MG/3ML (Albuterol Sulfate) Nebu 2.5 Mg INH QID PRN 12/11/15 Reported Spectazole 1% (Econazole Nitrate) Cr 1 Dose PO DAILY PRN 12/11/15 Reported Coumadin (Warfarin Sodium) 1 Mg Tab 2.5 Mg PO HS 30 12/11/15 Reported Senokot S (Senna/Docusate Sodium) 1 Tab Tab 1 Tab PO QAM PRN 12/11/15 Reported Lantus (Insulin Glargine) Vial 60 Units SC HS 12/11/15 Reported Advair Diskus 500/50 60 Dose (Fluticasone Prop/Salmeterol) 1 Ea Aerp 1 Puff INH BID 12/11/15 Reported Levothyroxine Sodium 75 Mcg Tab 1 Tab PO QAM 90 12/11/15 Reported Vitamin D (Ergocalciferol) 50,000 Interunit Cap 1 Cap PO WK 12/11/15 Reported Pravachol (Pravastatin Sodium) 20 Mg Tab 10 Mg PO HS 02/09/12 Reported Zyloprim * (Allopurinol) 100 Mg Tab 100 Mg PO DAILY 01/02/10 Reported Inpatient Medications: Current Inpatient Medications Medications (Trade) Dose Ordered Sig/Venkatesh Route Start Time Stop Time Status Last Admin Dose Admin Acetaminophen (Tylenol Tab) 650 mg Q4H PRN PO 03/13/17 15:30 04/12/17 15:29 Polyethylene (Miralax Powder Packet) 17 gm DAILY PRN PO 03/13/17 15:30 04/12/17 15:29 Ondansetron HCl (Zofran Inj) 4 mg Q6H PRN IV 03/13/17 15:30 04/12/17 15:29 Glucose (Glucose 40% Gel) 15-30 GRAMS 15 GRAMS... UD PRN PO 03/13/17 15:30 04/12/17 15:29 Glucose (Glucose Chew Tab) 4-8 Tablets 4 Tabl... UD PRN PO 03/13/17 15:30 04/12/17 15:29 Dextrose (Dextrose 50% 50ML Syringe) 25-50ML OF 50% DW IV FOR... UD PRN IV 03/13/17 15:30 04/12/17 15:29 Glucagon (Glucagon Inj) 1 mg UD PRN SQ 03/13/17 15:30 04/12/17 15:29 Allopurinol (Zyloprim Tab) 100 mg HS PO 03/13/17 21:00 04/12/17 20:59 Bupropion HCl (Wellbutrin-Sr Tab) 150 mg HS PO 03/13/17 21:00 04/12/17 20:59 Bupropion HCl (Wellbutrin-Sr Tab) 300 mg QAM PO 03/14/17 09:00 04/13/17 08:59 Diltiazem HCl (TIAzac CAP) 240 mg HS PO 03/13/17 21:00 04/12/17 20:59 Duloxetine HCl (Cymbalta Cap) 60 mg HS PO 03/13/17 21:00 04/12/17 20:59 Econazole Nitrate (Econazole Nitrate 1% Crm) 1 appln DAILY PRN EXT 03/13/17 17:15 04/12/17 17:14 Fexofenadine HCl (Anju Tab) 180 mg HS PO 03/13/17 21:00 04/12/17 20:59 Salmeterol Xinafoate/ Fluticasone (Advair Diskus 500/50 Inh) 1 puff BID INH 03/13/17 21:00 04/12/17 20:59 Levothyroxine Sodium (Synthroid Tab) 75 mcg DAILYBB PO 03/14/17 06:30 04/13/17 06:29 Metoprolol Succinate (Toprol Xl Tab) 100 mg HS PO 03/13/17 21:00 04/12/17 20:59 Pravastatin Sodium (Pravachol Tab) 10 mg HS PO 03/13/17 21:00 04/12/17 20:59 Senna/Docusate Sodium (Senokot S Tab) 1 tab QAM PRN PO 03/13/17 17:15 04/12/17 17:14 Sevelamer HCl (Renagel Tab) 1,600 mg TIDM PO 03/14/17 08:00 04/13/17 07:59 Sevelamer HCl (Renagel Tab) 800 mg UD PRN PO 03/13/17 17:15 04/12/17 17:14 Lorazepam (Ativan Tab) 1 mg TID PRN PO 03/13/17 17:15 04/12/17 17:14 Insulin Glargine (Lantus Solostar Pen) SEE PROTOCOL Q12 SC 03/13/17 21:00 04/12/17 20:59 Insulin Aspart (novoLOG ASPART) SLIDING SCALE If C... ACHS ME 03/13/17 21:00 04/12/17 20:59 Miscellaneous Information (Consult Glycemic Management Pharmacy) 1 ea UD PRN N/A 03/13/17 18:06 04/12/17 18:05 Review of Systems Review of Systems Constitutional: No fever, No chills Eyes: No double vision Neurological: No passing out, No seizures Endocrine: No tired/sluggish Gastrointestinal: + nausea, + vomiting Cardiovascular: No angina Respiratory: No coughing up blood Skin: No boils, No dry skin Musculoskeletal: + arthritis Blood / Lymphatic: + bruise easily Ears / Nose / Throat: No hoarse voice Psychologic / Mental: + trouble remembering Male : + see HPI, + urinary retention Physical Exam Vital Signs: Vital Signs Past 12 Hours Date Time Temp Pulse Resp B/P (MAP) Pulse Ox O2 Delivery O2 Flow Rate FiO2 03/13/17 17:33 36.7 90 20 105/56 98 Room Air 03/13/17 14:58 36.7 90 20 105/56 (72) 98 Room Air Physical Exam: General Appearance: no apparent distress, + obese ENT: hearing grossly normal Neck: no adenopathy Respiratory/Chest: no accessory muscle use Cardiovascular: no JVD Gastrointestinal: Abdomen: normal abdomen Bladder: normal bladder Renal: normal renal Hernia: absent hernia Liver: normal liver Genitourinary - Male: Penis: circumcised (buried phallus) Urethral Meatus: normal urethral meatus Testes: normal testes Scrotum: normal scrotum Neurologic/Psychiatric: alert Skin: normal color Lymphatic: no adenopathy Assessment & Plan Assessment & Plan A/P 77 yo male with difficult sanchez, possible UTI, neurogenic bladder. 18 fr coude placed with return of small amounts of cloudy urine. Benadryl 25 mg IV provided for history of previous Latex reaction - rash, no anaphylaxis. Sanchez DC per primary service, patient performs CIC at home, can resume as per previous. Contact patient's primary urologist for prompt outpatient follow-up of his care. Thank you for allowing us to assist in the patient's acute care, please recall our service PRN any new questions or concerns.
[2017-03-13] MEDS ORDERED: DiphenhydrAMINE HCL 50 MG/ML VIAL ONE (19:47)
[2017-03-13] MEDS: BuPROPion SR 150 MG TABCR PO SCH (19:58)
[2017-03-13] MEDS: FLUTICASONE/SALMETEROL (ADVAIR) 500/50 INH 14 PUFF INH SCH (19:59)
[2017-03-13] MEDS: ALLOPURINOL 100 MG TAB PO SCH (19:59)
[2017-03-13] MEDS: PRAVASTATIN SOD 10 MG TAB PO SCH (20:00)
[2017-03-13] MEDS: METOPROLOL SUCC 50MG EXT REL TAB PO SCH (20:00)
[2017-03-13] MEDS: FEXOFENADINE HCL 180 MG TAB PO SCH (20:00)
[2017-03-13] MEDS ORDERED: NURSING VERBAL MED ORDER ONE (20:00)
[2017-03-13] MEDS: DILTIAZEM HCL 120 MG EXT REL CAP PO SCH (20:04)
[2017-03-13] MEDS: DULOXETINE HCL 60 MG CAP PO SCH (20:05)
[2017-03-13 20:09] VITALS: BP 112/71; PULSE 106
[2017-03-13] MEDS: INSULIN GLARGINE SOLOSTAR 100 UNITS/ML 3 ML PEN SC SCH (20:54)
[2017-03-13] MEDS: INSULIN ASPART 100 UNITS/ML 3 ML PEN SC SCH (20:55)
[2017-03-13] MEDS ORDERED: FOLIC ACID PO SCH (21:00)
[2017-03-13] MEDS ORDERED: ASCORBIC ACID PO SCH (21:00)
[2017-03-13] MEDS ORDERED: B COMPLEX PO SCH (21:00)
--- NOTE | 2017-03-13 21:46 | DIAGNOSTIC IMAGING REPORT ---
L VENOUS DOPPLER UPR EXT UNI HISTORY: Pain. Edema. hematoma with hard area of induration, supratherap INR. COMPARISON STUDY: None. FINDINGS: The internal jugular vein is patent. There is normal flow within the subclavian vein. There is normal flow and compressibility within the left axillary, basilic, brachial, radial, ulnar, and visualized cephalic veins. Fistula in the left upper extremity is patent IMPRESSION: No DVT within the upper extremity. The fistula is patent The above report was generated using voice recognition software. It may contain grammatical, syntax or spelling errors. Electronically signed by: Walter Santamaria M.D. 03/13/2017 9:45 PM Dictated Date/Time: 03/13/2017 9:44 PM
--- NOTE | 2017-03-13 21:50 | DIAGNOSTIC IMAGING REPORT ---
L EXTREMITY NONVASCULAR LIMITED CLINICAL HISTORY: LUE bruised area of induration, US to characterize lesion TECHNIQUE: Ultrasound COMPARISON STUDY: None FINDINGS: Within the left biceps area is a 1.8 x 2 x 1.5 cm hypoechoic collection and/or hematoma. It is surrounded by moderate edematous tissue. Margins are somewhat irregular and components potentially relate to fibrous tissue. The fistula is patent. IMPRESSION: The area of bruising/palpable nodularity appears to represent a complex combination of hematoma, fibrous tissue, and simple edematous change. The fistula is patent. Dimensions at maximum are 1.8 x 2.0 x 1.5 cm. The above report was generated using voice recognition software. It may contain grammatical, syntax or spelling errors. Electronically signed by: Walter Santamaria M.D. 03/13/2017 9:48 PM Dictated Date/Time: 03/13/2017 9:45 PM
--- NOTE | 2017-03-13 21:51 | DIAGNOSTIC IMAGING REPORT ---
CHEST 1 VW FRONT-NOT PORTABLE CLINICAL HISTORY: ADMISSION CXR, PT WITH H/O HEART FAILURE ON HD W/ CLOTTED FISTUL COMPARISON STUDY: No previous studies for comparison. FINDINGS: Moderate cardiomegaly. Diaphragms smooth. Lungs are clear. IMPRESSION: Cardiomegaly. Otherwise negative study The above report was generated using voice recognition software. It may contain grammatical, syntax or spelling errors. Electronically signed by: Walter Santamaria M.D. 03/13/2017 9:50 PM Dictated Date/Time: 03/13/2017 9:49 PM
[2017-03-13 22:40] VITALS: BP 108/68; PULSE 100; TEMP 36.7; O2SAT 95
[2017-03-13 23:34] VITALS: PULSE 97; O2SAT 96
[2017-03-13 23:38] VITALS: PULSE 97; O2SAT 96
[2017-03-14] VITALS (10 sets, daily range): BP systolic 79–103; BP diastolic 52–64; PULSE 62–92; TEMP 36.2–36.6; O2SAT 93–97
[2017-03-14] MEDS ORDERED: INSULIN ASPART 100 UNITS/ML 3 ML PEN SC ONE (02:00)
[2017-03-14 07:21] LABS: HEMATOCRIT 29.7 % (42-52); MEAN CELL VOLUME 93.7 fL (80-100); MEAN CORPUSCULAR HEMOGLOBIN 28.7 pg (25-34); MEAN CORPUSCULAR HGB CONC 30.6 g/dl (32-36); MEAN PLATELET VOLUME 9.1 fL (7.4-10.4); PLATELET COUNT 259 K/uL (130-400); RED BLOOD COUNT 3.17 M/uL (4.7-6.1); WHITE BLOOD COUNT 7.95 K/uL (4.8-10.8)
[2017-03-14 07:33] LABS: PROTHROMBIN TIME (PATIENT) 58.9 SECONDS (9.0-12.0)
[2017-03-14 07:35] LABS: INR 5.1 (0.9-1.1)
[2017-03-14 07:56] LABS: BUN/CREATININE RATIO 8.4 (10-20); CALCIUM 8.6 mg/dl (8.5-10.1); CREATININE 6.6 mg/dl (0.60-1.40); MAGNESIUM 2.8 mg/dl (1.8-2.4); PHOSPHORUS 3.3 mg/dl (2.5-4.9)
[2017-03-14] MEDS: INSULIN ASPART 100 UNITS/ML 3 ML PEN SC SCH ×4 (08:01→21:44)
[2017-03-14] MEDS: BuPROPion SR 150 MG TABCR PO SCH ×2 (08:05→20:32)
[2017-03-14] MEDS: FLUTICASONE/SALMETEROL (ADVAIR) 500/50 INH 14 PUFF INH SCH ×2 (08:06→20:30)
[2017-03-14] MEDS: SEVELAMER HYDROCH 800 MG TAB PO SCH ×3 (08:06→16:50)
[2017-03-14] MEDS: INSULIN GLARGINE SOLOSTAR 100 UNITS/ML 3 ML PEN SC SCH ×2 (08:08→21:45)
[2017-03-14] MEDS: LEVOTHYROXINE 75 MCG TAB PO SCH (08:13)
[2017-03-14 08:31] LABS: ESTIMATED AVERAGE GLUCOSE 163 mg/dl; HA1C FLAG Normal (Normal)
--- NOTE | 2017-03-14 08:34 | NEPHROLOGY CONSULTATION ---
DATE OF CONSULTATION: 03/14/2017 ATTENDING OF RECORD: Dr. Nguyen. REASON FOR CONSULTATION: End-stage renal disease. HISTORY OF PRESENT ILLNESS: This is a 77-year-old male who dialyzes on Mondays, Wednesdays, and Fridays at the [facility]. The patient is currently bed bound for the past year and a half and has been on dialysis for the past year. The patient states he has no balance and leg weakness secondary to a pinched nerve in his back. The patient also states he is on blood thinners with a history of paroxysmal AFib. He also has a neurogenic bladder and at times, has difficulty with urination. The patient was having foul smelling urine and had a Weinberg placed by urology, which drained about 500 mL of foul smelling urine and then had hematuria afterwards in the setting of an elevated INR. INR was elevated at 6.9. The Coumadin was stopped and the patient was given vitamin K. In terms of his dialysis access, he has had infiltrations of his fistula as well as prolonged bleeding at times from his fistula sites. Dr. Álvarez has been consulted to look at the fistula further. The patient is comfortable. He states he has had decreased appetite for a quite some time and has lost over 100 pounds. REVIEW OF SYSTEMS: Positive anorexia. Positive 100-pound weight loss. Positive bedbound. No headaches. No blurry vision. No dysphagia. No rash. No itching. No chest pain. No shortness of breath. No nausea or vomiting. Still urinates. No diarrhea or constipation. All other review of systems otherwise negative. PAST MEDICAL HISTORY: End-stage renal disease, paroxysmal atrial fibrillation on Coumadin, depression, type 2 diabetes, spinal stenosis, hypothyroidism, and obstructive sleep apnea on CPAP. PAST SURGICAL HISTORY: Fistula placements, right total knee replacement, and partial thyroidectomy. FAMILY HISTORY: Significant for hypertension. SOCIAL HISTORY: No smoking, no alcohol, and no drugs. Lives at home with his . CURRENT MEDICATIONS: Wellbutrin 300 mg daily, Renagel 1600 mg t.i.d. with meals, Synthroid 75 mcg daily, allopurinol 100 mg at night, Wellbutrin 150 mg at night, diltiazem 240 mg at night, Cymbalta 60 mg at night, Anju 180 mg at night, Advair inhaler twice a day, Toprol-XL 100 mg at night, Pravachol 10 mg at night, and sliding scale insulin. PHYSICAL EXAMINATION: VITAL SIGNS: Temperature 36.7, pulse 97, respiratory rate 14, blood pressure 108/68, and satting 96% on room air. GENERAL: Awake, alert, and oriented x3, obese. EYES: No scleral icterus. ENT: Moist mucous membranes. NECK: Supple. PULMONARY: Clear to auscultation. CARDIAC: Regular rate and rhythm. ABDOMEN: Bowel sounds positive. Soft and nontender. EXTREMITIES: No significant clubbing, cyanosis or edema. NEUROLOGICALLY: Bedbound with leg weakness. GENITOURINARY: Positive Weinberg with some hematuria. LABORATORIES: Pending for this morning. Yesterday afternoon, white count 7, H&H 9.8 and 30.5, and platelet count 236. INR was 6.9. This morning's are pending. Sodium level 138, potassium 3.8, chloride is 101, bicarb is 30, BUN is 49, creatinine is 5.9, glucose 199, calcium is 8.8, and magnesium level is 2.5. Albumin is 2.1. TSH 1.26. Chest x-ray showed cardiomegaly, otherwise negative study. Extremity ultrasound showed complex hematoma, 1.8 cm. Fistula is patent. IMPRESSION AND PLAN: 1. End-stage renal disease. The patient is with fistula with good bruit and thrill. He did have an infiltration and has a significant hematoma above the fistula. Although still patent. Currently n.p.o. this morning and Dr. Álvarez has been consulted for further evaluation of the fistula. INR was elevated at 6.9. Coumadin has been held and vitamin K has been given. Awaiting this morning's INR. 2. Anemia of renal failure. Hemoglobin level 9.8. This morning's are pending. 3. End-stage renal disease. We will hold off on dialysis today given the infiltrated fistula with hematoma. We will await Dr. Álvarez's recommendations before attempting dialysis. Volume status and electrolytes appears stable. The patient is comfortable. Okay to hold off on dialysis today if medically necessary. I appreciate the consultation.
--- NOTE | 2017-03-14 10:42 | Pharmacy Progress Note ---
Glycemic Control Intl Consult Date of Service Mar 14, 2017. Scope Glycemic Pharmacist consulted by Dr Arredondo on 03/13/17 for glycemic control and to write orders per [facility] inpatient glycemic control protocol Objective Weight (Kilograms): 136.800 Accuchecks BSG (last 24hrs): Test 03/13/17 15:53 03/13/17 16:35 03/13/17 19:51 03/14/17 01:37 Random Glucose 199 mg/dl (70-99) Bedside Glucose 194 mg/dl (70-99) 163 mg/dl (70-99) 181 mg/dl (70-99) Test 03/14/17 06:46 03/14/17 07:26 Random Glucose 162 mg/dl (70-99) Bedside Glucose 157 mg/dl (70-99) Laboratory Data (last 24hrs) Test 03/13/17 15:53 03/14/17 06:46 Anion Gap 7.0 mmol/L 11.0 mmol/L BUN/Creatinine Ratio 8.3 8.4 Blood Urea Nitrogen 49 mg/dl 54 mg/dl Creatinine 5.90 mg/dl 6.60 mg/dl Potassium Level 3.8 mmol/L 4.0 mmol/L Sodium Level 138 mmol/L 137 mmol/L White Blood Count 7.74 K/uL 7.95 K/uL Hemoglobin A1c 7.3 % HbA1c Test 03/14/17 06:46 Hemoglobin A1c 7.3 % (4.5-5.6) H * However, this result is likely somewhat unreliable in ESRD patients d/t interactions between the A1c analyzing technique and high levels of urea in ESRD , reduced RBC life span, iron deficiency anemia, and EPO administration. HbA1c > 7.5% in ESRD patient may overestimate the extent of hyperglycemia in ESRD patients. Recent Pertinent Medications Outpatient Anti-diabetic Regimen: * Lantus 60 - 80 units SQ HS based on BSG * 60 units with HS BSG 140 - 160mg/dl * 70 units with HS BSG ~160 - 200mg/dl * 80 units with HS BSG 200+ * However, reports hypo with outpatient regimen 2-3x/week * NovoLog "scale" AC * 7, 15, 20 units based on BSG & meal The patient is currently receiving: * Basal insulin: Lantus 20 units every 12 hours * Correctional Insulin: Novolog Correction per scale ACHS Goal Range: Low 140 mg/dL - High 180 mg/dL Correction Factor: 30 mg/dL/unit * Prandial insulin: Per carb ratio of 1 unit per 11 grams CHO consumed Assessment & Plan ASSESSMENT: * 77yo T2DM male with presumed inadequate degree of outpatient control secondary to reported frequent hypoglycemia * Outpatient basal insulin dosing may need to be decreased as pt is reporting hypoglycemia 2-3 times per week * Pt currently NPO, will likely need reduced outpatient dosing * ADA & AACE recommend a goal blood sugar range 140-180 mg/dl for the majority of critically ill & non-critically ill patients. However, more stringent targets may be selected in individual cases. Will use a slightly more stringent goal range of 120-150mg/dl to maintain BSGs in 140-180mg/dl range. PLAN FOR INPATIENT GLYCEMIC CONTROL: * Basal insulin * Lantus 20 units SQ BID * Pt uses 60-80 units/day as an outpatient so this is reduced outpatient dosing for NPO & hypo as an outpatient * Bolus insulin * NovoLog per scale ACHS or Q6hrs while NPO * Goal Range: Low 120 mg/dL - High 150 mg/dL * Correction Factor: 20 mg/dL/unit * Nutritional / Prandial insulin per carb ratio of 1 unit per 7 grams CHO consumed * Please note that the plan above was derived based on current level of insulin resistance and hospital stress. These recommendations are appropriate for inpatient admission only. Plan of care upon discharge will need to be reassessed to avoid potential outpatient hypo/hyperglycemia. Thank you.
--- NOTE | 2017-03-14 11:04 | Surgery Consultation ---
Consultation Date of Service Mar 14, 2017. (Melissa Weiss, DAVION) Chief Complaint malfunctioning AVF LUE (Melissa Weiss, DAVION) History of Present Illness The patient is a 77 year old male with multiple medical problems, including ESRD on HD, a fib, CAD, HTN, DMII, spinal stenosis, known to Dr Álvarez for HD access, seen in consultation today d/t concerns regarding his LUE AVF. Pt had LUE AC cephalic v AVF created in november 2015, then underwent fistulagram in December 2016 during which an amplatzer plug was placed in a large branch. Pt had been dialyzing well but having prolonged bleeding after needles removed. Last libertad at HD, pt moved his arm, causing his AV access needles to infiltrate. Pt was admitted to [facility] yesterday and found to have INR of 6.9 and hematuria. Pt denies any complaints presently. Denies LOVE, fever, chills, chest pain,SOB, abd pain, N/V, rest pain, claudication, other complaints. INR this AM 5.1. (Melissa Weiss, DAVION) Vitals Vital Signs Past 12 Hours Date Time Temp Pulse Resp B/P (MAP) Pulse Ox O2 Delivery O2 Flow Rate FiO2 03/14/17 08:15 Room Air 03/14/17 08:13 95 Room Air 03/14/17 07:49 36.4 82 12 79/52 (61) 95 Room Air 03/14/17 00:00 96 Room Air 03/13/17 23:38 97 14 96 CPAP 03/13/17 23:34 97 96 (Melissa Weiss, DAVION) Allergies Coded Allergies: Penicillins (Verified Allergy, Severe, anaphylaxis, 12/28/16) Sulfa Drugs (Verified Allergy, Severe, BACTRIM = ANAPHYLAXIS, PT TOOK DURING 12/28 ADMISSION W/O RXN, 12/28/16) Cefuroxime (Verified Allergy, Intermediate, RASH, 12/28/16) Famotidine (Verified Allergy, Intermediate, SHORTNESS OF BREATH, 12/28/16) Latex (Verified Allergy, Mild, RASH, 12/28/16) Cephalosporins (Verified Allergy, Unknown, RASH, 12/28/16) Ciprofloxacin (Verified Allergy, Unknown, RASH, 12/28/16) Clindamycin (Verified Allergy, Unknown, SHORTNESS OF BREATH, tingling, 05/06) Daptomycin (Verified Allergy, Unknown, unknown, 12/28/16) Insulin Lispro (Verified Allergy, Unknown, CAUSED HYPERGLYCEMIA, 12/28/16) Linezolid (Verified Allergy, Unknown, RASH, 12/28/16) Nitrofurantoin (Verified Allergy, Unknown, HIVES, rash, 12/28/16) Omeprazole (Verified Allergy, Unknown, loss of motor function, disoriented , 12/28/16) Oxycodone (Verified Allergy, Unknown, altered mental state, 12/28/16) Phenol (Verified Allergy, Unknown, CAUSED HYPERGLYCEMIA, 12/28/16) Trimethoprim (Verified Allergy, Unknown, impaired renal function, 12/28/16) Erythromycin (Verified Adverse Reaction, Intermediate, JAUNDICE, 12/28/16) Metolazone (Verified Adverse Reaction, Intermediate, ELEVATED BUN, pt is still taking, 12/28/16) Home Medications Scheduled Allopurinol (Zyloprim *), 100 MG PO DAILY B-Complex W/ C & Folic Acid (Renal Vitamin 0.8 mg), 1 PO HS Bupropion (Wellbutrin Sr), 300 MG PO QAM Bupropion (Wellbutrin Sr), 150 MG PO HS Diltiazem Hcl Ext Rel (Tiazac), 240 MG PO DAILY Duloxetine HCl (Cymbalta), 60 MG PO HS Ergocalciferol (Vitamin D), 1 CAP PO WK Fexofenadine Hcl (Anju Allergy), 1 TAB PO HS Fluticasone Prop/Salmeterol (Advair Diskus 500/50 60 Dose), 1 PUFF INH BID Insulin Aspart (Novolog Penfill), 0 SQ UD Insulin Glargine (Lantus), 60 UNITS SC HS Levothyroxine Sodium (Levothyroxine Sodium), 1 TAB PO QAM Metoprolol Succinate (Toprol Xl), 1 TAB PO HS Pravastatin Sodium (Pravachol), 10 MG PO HS Sevelamer Carbonate (Renvela), 2 TAB PO TID Warfarin Sodium (Coumadin), 2.5 MG PO HS [Nepo ], 1 CAN HS Scheduled PRN Albuterol Soln (Proventil 0.083% 2.5MG/3ML), 2.5 MG INH QID PRN for SOB/Wheezing Econazole Nitrate 1% (Spectazole 1%), 1 DOSE PO DAILY PRN for PRN Lorazepam (Ativan), 1 MG PO TID PRN for Anxiety/Agitation Senna/Docusate Sod (Senokot S), 1 TAB PO QAM PRN for Constipation Problem List Medical Problems: (1) Ambulatory dysfunction (2) Anxiety (3) Chronic diastolic (congestive) heart failure (4) Current use of fpc anticoagulation (5) Depression (6) DMII (diabetes mellitus, type 2) (7) ESRD (end stage renal disease) on dialysis (8) H/O endocarditis (9) H/O spinal stenosis (10) Hypothyroidism (11) Neurogenic bladder (12) ELLEN on CPAP (13) PAF (paroxysmal atrial fibrillation) (14) Vitamin D deficiency Surgical Problems: (1) S/P partial thyroidectomy (2) Status post total knee replacement, right (Melissa eWiss, PATIENCEC) Surgical / Medical History Hx Cardiac Surgery: No Hx Abdominal Surgery: Yes (Hernia repair, gallbladder,) Hx Cancer Surgery: Yes (nose ) Hx Thoracic Surgery: No Hx Orthopedic: Yes (right hip, back, right knee) Hx Urinary Tract Surgery: Yes (LITHOTRIPSY, CYSTO) HX Other Surgery: No Past Medical/Surgical History: Cancer, Diabetes, Heart Disease, High Cholesterol, Hypertension, Kidney Disease (Melissa Weiss, PANicoleC) Family History FH: Alzheimers disease MOTHER FH: HTN (hypertension) BROTHER SISTER FH: cirrhosis SISTER FHx: myocardial infarction male first degree age known FATHER (early 60s) (Melissa Weiss, PA-C) FH: Alzheimers disease MOTHER FH: HTN (hypertension) BROTHER SISTER FH: cirrhosis SISTER FHx: myocardial infarction male first degree age known FATHER (early 60s) (Antoni Álvarez M.D.) Social History Smoking Status: Never Smoker Hx Tobacco Use In Past Year?: No Hx Alcohol Use - Type & Amnt: No Hx Substance Use -Type & Amnt: No (Melissa Weiss, PATIENCEC) Review of Systems Constitutional: + malaise, No chills, No fever Skin: No change in color Eyes: No visual changes ENMT: No sore throat Respiratory: No cough, No REYNOLDS, No hemoptysis, No short of breath Cardiovascular: No chest pain, No palpitations, No edema, No intermittent claudication Gastrointestinal: No abdominal pain, No nausea, No vomiting Neurologic: No dizziness, No lethargy, No numbness, No tingling (Melissa Weiss, PATIENCEC) Physical Exam Constitutional: General Apperance: well-nourished, well-developed, obese Level of Distress: chronically ill Psychiatric: Mental Status: abnormal affect (flat), lethargic, confused (mildly) Orientation: oriented except where noted, to time, to place, to person Memory: recent memory abnormal (vague, poor historian) Head: normocephalic, atraumatic Eyes: EOM: EOMI ENMT: normal ENT inspection, hearing grossly normal Neck: supple, trachea midline Lungs: Respiratory effort: no dyspnea Auscultation: no rales/crackles, no rhonchi, decreased breath sounds Cardiovascular: Apical Impulse: not displaced Heart Auscultation: no rubs, no gallops, pertinent finding (irregular) Peripheral Pulses: Pulses: full and equal, in all extremities except if noted Bruits: none appreciated Carotid Pulse: normal on the left, normal on the right Brachial Pulses: normal on the left, normal on the right, pertinent finding (LUE AVF with + thrill/bruit throughout his AVF, large hematoma noted in center. ) Radial Pulse: normal on the left, normal on the right Femoral Pulse: normal on the left, normal on the right Posterior Tibialis Pulse: decreased on the left, decreased on the right Dorsalis Pedis Pulse: decreased on the left, decreased on the right Abdomen: Bowel Sounds: normal Inspection & Palpation: soft, no tenderness, guarding & rebound, distended ( d/t body habitus) Extremities: Upper Right: no cyanosis, no edema, no varicosities Upper Left: no cyanosis, no edema, no varicosities Lower Right: no cyanosis, no varicosities, no palpable cord, edema Lower Left: no cyanosis, no varicosities, no palpable cord, edema Neurologic: Cranial Nerves: grossly intact (Melissa Weiss, PA-C) Assessment and Plan ASSESSMENT and PLAN: ESRD on HD Pt appears to have hematoma in LUE at location of recent infiltration. AVF remains patent, verified by US. Amplazter plug appears in proper position. No indications for vascular surgical intervention at this time. Recommend attempted use of AVF for HD. If unable to access, may require permcath insertion until hematoma resolves, but cannot be placed until INR near 2. Please call if needed. (Melissa Weiss, PA-C) Patient was seen, examined, and chart reviewed. Agree with exam and treatment plan of the Vascular PA. Thank you very much for letting me participate in the care of this patient. (Antoni Álvarez M.D.)
[2017-03-14] MEDS ORDERED: PHYTONADIONE 5 MG TAB PO ONE ×2 (11:30→20:00)
[2017-03-14 18:54] LABS: INR 3.5 (0.9-1.1); PROTHROMBIN TIME (PATIENT) 39.8 SECONDS (9.0-12.0)
[2017-03-14] MEDS: ALLOPURINOL 100 MG TAB PO SCH (20:32)
[2017-03-14] MEDS: DULOXETINE HCL 60 MG CAP PO SCH (20:32)
[2017-03-14] MEDS: METOPROLOL SUCC 50MG EXT REL TAB PO SCH (20:33)
[2017-03-14] MEDS: PRAVASTATIN SOD 10 MG TAB PO SCH (20:33)
[2017-03-14] MEDS: DILTIAZEM HCL 120 MG EXT REL CAP PO SCH (20:34)
[2017-03-14] MEDS: FEXOFENADINE HCL 180 MG TAB PO SCH (20:37)
--- NOTE | 2017-03-14 22:49 | Progress Note ---
Internal Med Progress Note Date of Service: Mar 14, 2017. Provider Documentation: SUBJECTIVE: pt offers no complain , denies of any pain or discomfort, no bleeding noted form the fistula site no complain of SOB or discomfort Weinberg placed by Urology earlier -has scant amount of bloody drainage in bag no fever or chills pt's remains very anxious regarding what is plan for dialysis , and whether fistula needs to be removed pt gets very anxious with needles stick , asking about perm Cath could be better option pt and counselled -increased bleeding form fistula while attempt to dialysis happened due to elevated INR > 5 apparently fistula is functioning well as per Doppler study and vascular surgery evaluation mild hematoma around fistula site should be resolved as coagulopathy /INR improves with Vit K pt is updated that Perm cath has higher rate of infection , bleeding and clot than fistula , if his fistula remains operative , having a second HD access will not be beneficial OBJECTIVE: Vital Signs-as noted below Exam: General-obese ,completely bed bound , no discomfort noted Eyes-sclera non icteric ENT-NAd Neck-no JVD Lungs-diminished, Heart-regular Abdomen-soft, distended Extremities-left mid arm -Fistula -+ bruit + thrill Neuro-flat affect, no focal deficit Lab data as noted below. ASSESSMENT & PLAN: COAGULOPATHY : on Coumadin for chronic Afib presents with INR ~6 , bleeding at AV fistular site at HD center while attempt to cannulate given VIt K 2.5 yesterday INR remains elevated ~5 ordered for vt K 5 mg and repeat INR in afternoon possible reason for elevated INR -poor PO intake ( mentions pt has extremely poor appetite , complains of metallic taste with each food /poor clearance due to ESRD ) pt will need close follow up with coagulation clinic on discharge Coumadin dose should be resumed to 1 mg daily as INR falls below 2 ( was on Coumadin 2.5 ) ESRD ON HD : follows with Dr Scherer missed HD on Tuesday for bleeding at fistula site appreciate input form Nephrology /vascular surgery -left arm AV fistula appears to be functioning small amount of hematoma due to elevated INR in agreement with Vit k to reverse the coagulopathy pt appears to be stable on vol no evidence of electrolyte derangements hold HD today for INR < 5 plan for re evaluate and resume HD via left arm AV fistula as iNR < 3 ANXIETY DISORDER : mentions pt gets anxiety attach each time getting dialysis as they cannulate the fistula pt hates needles , gets panic attack with blood draw has been ordered for PRN Ativan prior to HD requesting for Ativan PRN during other days of week as pt appears to be restless , irritated and can not sleep with anticipation of next HD reviewed [place] PD[place] site -pt has been getting intermittent dose of Ativan 1 mg for anxiety from his family physician last prescription filled was on 02/26/17 for Ativan 1 mg BID prn #20 tablets pt given script for 0.5 mg PO BID PRN , asked to use 1/2 of the prior tables as with ESRD pt may need less dose but more frequent specially after dialysis pt will need to follow up with Psychiatry as out pt for significant anxiety and depression issues DVT PROPHYLAXIS INR elevated DISPOSITION lives at home , bed bound requires complete care will need transport arrangement to return home on discharge social service consulted for discharge planning follows with [facility] follow up with Dr Aura Scherer Vital Signs: Date Time Temp Pulse Resp B/P (MAP) Pulse Ox O2 Delivery O2 Flow Rate FiO2 03/15/17 08:31 36.6 73 18 93/57 (69) 92 03/15/17 08:09 Room Air 03/15/17 03:55 36.5 62 16 101/53 (69) 96 03/14/17 23:40 36.3 62 18 96/52 (67) 93 03/14/17 22:47 96 Room Air 03/14/17 22:10 92 97 03/14/17 21:00 88 103/63 (76) 03/14/17 20:20 36.6 87 19 95/59 (71) 93 Room Air 03/14/17 16:15 Room Air 03/14/17 15:28 36.2 88 16 94/59 (71) 97 03/14/17 12:00 36.4 81 12 98/64 (75) 96 Room Air Lab Results: Results Past 24 Hours Test 03/14/17 11:21 03/14/17 16:51 03/14/17 18:33 03/14/17 20:41 Range/Units Bedside Glucose 128 135 134 70-99 mg/dl Prothrombin Time 39.8 9.0-12.0 SECONDS Prothromb Time International Ratio 3.5 0.9-1.1 Test 03/15/17 08:16 03/15/17 08:22 Range/Units Prothrombin Time 22.2 9.0-12.0 SECONDS Prothromb Time International Ratio 2.0 0.9-1.1 Bedside Glucose 135 70-99 mg/dl
[2017-03-15] VITALS (18 sets, daily range): BP systolic 90–113; BP diastolic 38–64; PULSE 62–100; TEMP 36.4–36.9; O2SAT 92–96
[2017-03-15] MEDS: LEVOTHYROXINE 75 MCG TAB PO SCH (05:57)
--- NOTE | 2017-03-15 06:44 | Nephrology Progress Note ---
Nephrology Progress Note Date of Service: Mar 15, 2017. Subjective 77 yo male with bleeding issues from fistula with significant hematoma and found to have elevated inr. inr is trending down. pt also had foul smelling urine requiring sanchez catheter insertion. has some residual hematuria. pt comfortable. no complaints. Objective Date Time Temp Pulse Resp B/P (MAP) Pulse Ox O2 Delivery O2 Flow Rate FiO2 03/15/17 03:55 36.5 62 16 101/53 (69) 96 03/14/17 23:40 36.3 62 18 96/52 (67) 93 03/14/17 22:47 96 Room Air 03/14/17 22:10 92 97 03/14/17 21:00 88 103/63 (76) 03/14/17 20:20 36.6 87 19 95/59 (71) 93 Room Air 03/14/17 16:15 Room Air 03/14/17 15:28 36.2 88 16 94/59 (71) 97 03/14/17 12:00 36.4 81 12 98/64 (75) 96 Room Air 03/14/17 08:15 Room Air 03/14/17 08:13 95 Room Air 03/14/17 07:49 36.4 82 12 79/52 (61) 95 Room Air Physical Exam: General-aaox3, obese Eyes-no scleral icterus ENT-mmm Neck-supple Lungs-cta Heart-rrr Abdomen-bs+ s/nt/nd Extremities-+1 edema Neuro-bedbound Current Inpatient Medications Medications (Trade) Dose Ordered Sig/Venkatesh Route Start Time Stop Time Status Last Admin Dose Admin Acetaminophen (Tylenol Tab) 650 mg Q4H PRN PO 03/13/17 15:30 04/12/17 15:29 Polyethylene (Miralax Powder Packet) 17 gm DAILY PRN PO 03/13/17 15:30 04/12/17 15:29 Ondansetron HCl (Zofran Inj) 4 mg Q6H PRN IV 03/13/17 15:30 04/12/17 15:29 Glucose (Glucose 40% Gel) 15-30 GRAMS 15 GRAMS... UD PRN PO 03/13/17 15:30 04/12/17 15:29 Glucose (Glucose Chew Tab) 4-8 Tablets 4 Tabl... UD PRN PO 03/13/17 15:30 04/12/17 15:29 Dextrose (Dextrose 50% 50ML Syringe) 25-50ML OF 50% DW IV FOR... UD PRN IV 03/13/17 15:30 04/12/17 15:29 Glucagon (Glucagon Inj) 1 mg UD PRN SQ 03/13/17 15:30 04/12/17 15:29 Allopurinol (Zyloprim Tab) 100 mg HS PO 03/13/17 21:00 04/12/17 20:59 03/14/17 20:32 100 MG Bupropion HCl (Wellbutrin-Sr Tab) 150 mg HS PO 03/13/17 21:00 04/12/17 20:59 03/14/17 20:32 150 MG Bupropion HCl (Wellbutrin-Sr Tab) 300 mg QAM PO 03/14/17 09:00 04/13/17 08:59 03/14/17 08:05 300 MG Diltiazem HCl (TIAzac CAP) 240 mg HS PO 03/13/17 21:00 04/12/17 20:59 03/14/17 20:34 240 MG Duloxetine HCl (Cymbalta Cap) 60 mg HS PO 03/13/17 21:00 04/12/17 20:59 03/14/17 20:32 60 MG Econazole Nitrate (Econazole Nitrate 1% Crm) 1 appln DAILY PRN EXT 03/13/17 17:15 04/12/17 17:14 Fexofenadine HCl (Anju Tab) 180 mg HS PO 03/13/17 21:00 04/12/17 20:59 03/14/17 20:37 180 MG Salmeterol Xinafoate/ Fluticasone (Advair Diskus 500/50 Inh) 1 puff BID INH 03/13/17 21:00 04/12/17 20:59 03/14/17 20:30 1 PUFF Levothyroxine Sodium (Synthroid Tab) 75 mcg DAILYBB PO 03/14/17 06:30 04/13/17 06:29 03/15/17 05:57 75 MCG Metoprolol Succinate (Toprol Xl Tab) 100 mg HS PO 03/13/17 21:00 04/12/17 20:59 03/14/17 20:33 100 MG Pravastatin Sodium (Pravachol Tab) 10 mg HS PO 03/13/17 21:00 04/12/17 20:59 03/14/17 20:33 10 MG Senna/Docusate Sodium (Senokot S Tab) 1 tab QAM PRN PO 03/13/17 17:15 04/12/17 17:14 Sevelamer HCl (Renagel Tab) 1,600 mg TIDM PO 03/14/17 08:00 04/13/17 07:59 03/14/17 16:50 1,600 MG Sevelamer HCl (Renagel Tab) 800 mg UD PRN PO 03/13/17 17:15 04/12/17 17:14 Lorazepam (Ativan Tab) 1 mg TID PRN PO 03/13/17 17:15 04/12/17 17:14 Insulin Glargine (Lantus Solostar Pen) SEE PROTOCOL Q12 [place] 03/13/17 21:00 04/12/17 20:59 03/14/17 21:45 20 UNITS Insulin Aspart (novoLOG ASPART) SLIDING SCALE If C... ACHS [place] 03/13/17 21:00 04/12/17 20:59 03/14/17 17:20 9 UNITS Miscellaneous Information (Consult Glycemic Management Pharmacy) 1 ea UD PRN N/A 03/13/17 18:06 04/12/17 18:05 Last 24 Hours Test 03/14/17 06:46 03/14/17 07:26 03/14/17 11:21 03/14/17 16:51 White Blood Count 7.95 K/uL Red Blood Count 3.17 M/uL Hemoglobin 9.1 g/dL Hematocrit 29.7 % Mean Corpuscular Volume 93.7 fL Mean Corpuscular Hemoglobin 28.7 pg Mean Corpuscular Hemoglobin Concent 30.6 g/dl RDW Standard Deviation 58.4 fL RDW Coefficient of Variation 17.1 % Platelet Count 259 K/uL Mean Platelet Volume 9.1 fL Nucleated RBC Absolute Count (auto) 0.04 K/uL Nucleated Red Blood Cells % 0.5 % Prothrombin Time 58.9 SECONDS Prothromb Time International Ratio 5.1 Sodium Level 137 mmol/L Potassium Level 4.0 mmol/L Chloride Level 99 mmol/L Carbon Dioxide Level 27 mmol/L Anion Gap 11.0 mmol/L Blood Urea Nitrogen 54 mg/dl Creatinine 6.60 mg/dl Est Creatinine Clear Calc Drug Dose 12.5 ml/min Estimated GFR () 8.5 Estimated GFR (Non- 7.3 BUN/Creatinine Ratio 8.4 Random Glucose 162 mg/dl Estimated Average Glucose 163 mg/dl Hemoglobin A1c 7.3 % Calcium Level 8.6 mg/dl Phosphorus Level 3.3 mg/dl Magnesium Level 2.8 mg/dl Bedside Glucose 157 mg/dl 128 mg/dl 135 mg/dl Test 03/14/17 18:33 03/14/17 20:41 03/15/17 04:44 Prothrombin Time 39.8 SECONDS Prothromb Time International Ratio 3.5 Bedside Glucose 134 mg/dl Assessment & Plan ESRD-has a fistula which appears patent with a residual significant hematoma. inr trending down. will attempt to use the fistula today and if issues, will contact vascular surgery. 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
[2017-03-15] MEDS: INSULIN ASPART 100 UNITS/ML 3 ML PEN SC SCH ×4 (07:00→22:04)
[2017-03-15] MEDS ORDERED: EPOETIN ALFA 10,000 UNITS/ML VIAL IV. SCH (08:00)
[2017-03-15] MEDS: BuPROPion SR 150 MG TABCR PO SCH ×2 (08:38→22:00)
[2017-03-15] MEDS: FLUTICASONE/SALMETEROL (ADVAIR) 500/50 INH 14 PUFF INH SCH ×2 (08:38→21:55)
[2017-03-15] MEDS: SEVELAMER HYDROCH 800 MG TAB PO SCH ×3 (08:38→18:50)
[2017-03-15 08:44] LABS: PROTHROMBIN TIME (PATIENT) 22.2 SECONDS (9.0-12.0)
[2017-03-15] MEDS: INSULIN GLARGINE SOLOSTAR 100 UNITS/ML 3 ML PEN SC SCH ×2 (08:47→22:04)
--- NOTE | 2017-03-15 09:16 | Pharmacy Progress Note ---
Glycemic: Assessment & Plan Date of Service Mar 15, 2017. Assessment & Plan The patient is currently receiving 54 units of insulin per day. BSGs ranging 128 - 135 mg/dl over the past 24hrs. Pt on reduced dose of Lantus from home dose d/t hypoglycemia at home. Test 03/14/17 11:21 03/14/17 16:51 03/14/17 20:41 03/15/17 08:16 Bedside Glucose 128 mg/dl (70-99) 135 mg/dl (70-99) 134 mg/dl (70-99) Test 03/15/17 08:22 Bedside Glucose 135 mg/dl (70-99) * Basal insulin: Lantus 20 units every 12 hours * Correctional Insulin: Novolog Correction per scale ACHS Goal Range: Low 120 mg/dL - High 150 mg/dL Correction Factor: 20 mg/dL/unit * Prandial insulin: Per carb ratio of 1 unit per 7 grams CHO consumed BSGs continue to improve, no changes needed to inpatient regimen at this time. Pharmacy will continue to monitor patient daily and write orders per LTAC, located within [facility] inpatient glycemic control protocol. Thanks. * Please note that the plan above was derived based on current level of insulin resistance and hospital stress. These recommendations are appropriate for inpatient admission only. Plan of care upon discharge will need to be reassessed to avoid potential outpatient hypo/hyperglycemia.
[2017-03-15 09:17] LABS: BUN/CREATININE RATIO 8.2 (10-20); CALCIUM 8.9 mg/dl (8.5-10.1); POTASSIUM 3.4 mmol/L (3.5-5.1)
[2017-03-15] MEDS: LORAZEPAM 1 MG TAB PO PRN (12:02)
[2017-03-15] MEDS ORDERED: LIDOCAINE/PRILOCAINE 2.5% EA CRM EXT ONE (13:45)
--- NOTE | 2017-03-15 16:11 | Progress Note ---
Internal Med Progress Note Date of Service: Mar 15, 2017. Provider Documentation: SUBJECTIVE: Seen and examined at bedside. Currently getting HD Had 2 loose BMs today Denies chest pain, SOB, abd pain Family at bedside Urine Catheter: + minimal hematuria (Traumatic) OBJECTIVE: Vital Signs-as noted below Physical Exam: General Appearance:Obese, no apparent distress Head: normocephalic, Atraumatic Eyes: normal inspection, EOMI, PERRL Neck: supple, Trachea midline Respiratory/Chest: Decreased breath sounds, CTA Cardiovascular: Distant heart sounds, No murmur Abdomen/GI:Soft, Non tender, Bowel sounds present Extremities/Musculoskelatal:normal inspection, no edema Neurologic/Psych:grossly no focal neurological deficits Skin: normal color, warm Lab data as noted below. ASSESSMENT & PLAN: COAGULOPATHY : on Coumadin for chronic Afib presents with INR ~6 , bleeding at AV fistular site at HD center while attempt to cannulate S/P VIt K INR now 2.0 Elevated INR likley secondary to poor PO intake ( mentions pt has extremely poor appetite , complains of metallic taste with each food /poor clearance due to ESRD ) Needs close follow up with coagulation clinic on discharge Plan to resume Coumadin at low dose: 1 mg daily when INR less than 2 ( was on Coumadin 2.5mg at home ) Acute C.diff colitis: H/O C.diff previously Start PO Vancomycin (Needs 14 day therapy) Neurogenic bladder: Traumatic catheterization: Monitor Hb Patient performs CIC at home Appreciate Urology help Patient and his prefers to leave the sanchez in place for now Needs follow up with his Urologist in 1 week upon discharge ESRD ON HD : follows with Dr Scherer missed HD on Tuesday for bleeding at fistula site appreciate input form Nephrology /vascular surgery -left arm AV fistula appears to be functioning small amount of hematoma due to elevated INR HD per Nephrology ANXIETY DISORDER : mentions pt gets anxiety attach each time getting dialysis as they cannulate the fistula pt hates needles , gets panic attack with blood draw has been ordered for PRN Ativan prior to HD requesting for Ativan PRN during other days of week as pt appears to be restless , irritated and can not sleep with anticipation of next HD reviewed [place] site -pt has been getting intermittent dose of Ativan 1 mg for anxiety from his family physician last prescription filled was on 02/26/17 for Ativan 1 mg BID prn #20 tablets pt given script for 0.5 mg PO BID PRN , asked to use 1/2 of the prior tables as with ESRD pt may need less dose but more frequent specially after dialysis pt will need to follow up with Psychiatry as out pt for significant anxiety and depression issues DVT Px INR therapeutic DISPOSITION lives at home , bed bound requires complete care will need transport arrangement to return home on discharge social service consulted for discharge planning follows with [facility] Nephrology follow up with Dr Aura Scherer Vital Signs: Date Time Temp Pulse Resp B/P (MAP) Pulse Ox O2 Delivery O2 Flow Rate FiO2 03/15/17 15:45 89 106/51 03/15/17 15:30 78 90/53 03/15/17 15:25 36.4 74 18 113/55 (74) 95 03/15/17 15:15 73 98/51 03/15/17 15:00 79 105/54 03/15/17 14:45 73 98/51 03/15/17 14:24 79 113/43 03/15/17 13:35 36.4 91/49 (63) 03/15/17 08:31 36.6 73 18 93/57 (69) 92 03/15/17 08:09 Room Air 03/15/17 03:55 36.5 62 16 101/53 (69) 96 03/14/17 23:40 36.3 62 18 96/52 (67) 93 03/14/17 22:47 96 Room Air 03/14/17 22:10 92 97 03/14/17 21:00 88 103/63 (76) 03/14/17 20:20 36.6 87 19 95/59 (71) 93 Room Air 03/14/17 16:15 Room Air Lab Results: Results Past 24 Hours Test 03/14/17 16:51 03/14/17 18:33 03/14/17 20:41 03/15/17 08:16 Range/Units Bedside Glucose 135 134 70-99 mg/dl Prothrombin Time 39.8 22.2 9.0-12.0 SECONDS Prothromb Time International Ratio 3.5 2.0 0.9-1.1 Sodium Level 135 136-145 mmol/L Potassium Level 3.4 3.5-5.1 mmol/L Chloride Level 98 98-107 mmol/L Carbon Dioxide Level 24 21-32 mmol/L Anion Gap 13.0 3-11 mmol/L Blood Urea Nitrogen 65 7-18 mg/dl Creatinine 8.00 0.60-1.40 mg/dl Est Creatinine Clear Calc Drug Dose 10.3 ml/min Estimated GFR () 6.7 Estimated GFR (Non- 5.8 BUN/Creatinine Ratio 8.2 10-20 Random Glucose 146 70-99 mg/dl Calcium Level 8.9 8.5-10.1 mg/dl Test 03/15/17 08:22 03/15/17 11:27 Range/Units Bedside Glucose 135 216 70-99 mg/dl Microbiology Results 03/15/17 C.difficile Toxin B Gene (PCR) - Final, Complete Positive for C. difficile toxin B gene
[2017-03-15] MEDS: VANCOMYCIN HCL 125 MG/2.5ML SOLN PO SCH ×2 (18:50→21:55)
[2017-03-15] MEDS: RASPBERRY SYRUP 5 ML UDP PO SCH ×2 (18:51→21:55)
[2017-03-15] MEDS: FEXOFENADINE HCL 180 MG TAB PO SCH (21:56)
[2017-03-15] MEDS: PRAVASTATIN SOD 10 MG TAB PO SCH (21:57)
[2017-03-15] MEDS: DILTIAZEM HCL 120 MG EXT REL CAP PO SCH (21:59)
[2017-03-15] MEDS: ALLOPURINOL 100 MG TAB PO SCH (22:00)
[2017-03-15] MEDS: METOPROLOL SUCC 50MG EXT REL TAB PO SCH (22:00)
[2017-03-15] MEDS: DULOXETINE HCL 60 MG CAP PO SCH (22:10)
[2017-03-16] VITALS (19 sets, daily range): BP systolic 88–114; BP diastolic 45–64; PULSE 92–114; TEMP 36.5–36.7; O2SAT 92–98
[2017-03-16] MEDS: LEVOTHYROXINE 75 MCG TAB PO SCH (06:00)
--- NOTE | 2017-03-16 06:53 | Nephrology Progress Note ---
Nephrology Progress Note Date of Service: Mar 16, 2017. Subjective 77 yo male with bleeding issues from fistula likely from elevated INR from poor appetite. has been losing a signficant amount of weight. pt had successful dialysis yesterday. has a resolving hematoma from infiltrated site at outpt unit. pt with sanchez which he prefers to leave in for now and follows with urology as an outpt. found to have cdiff and currently getting treatment for it. pt comfortable. Objective Date Time Temp Pulse Resp B/P (MAP) Pulse Ox O2 Delivery O2 Flow Rate FiO2 03/16/17 00:57 Room Air CPAP 03/15/17 23:20 36.9 86 18 100/64 (76) 03/15/17 21:30 Room Air 03/15/17 18:31 36.5 100 96/43 (60) 03/15/17 17:15 89 93/49 03/15/17 17:00 86 97/49 03/15/17 16:45 88 107/54 03/15/17 16:30 76 105/56 03/15/17 16:15 87 99/45 03/15/17 16:00 75 91/38 03/15/17 16:00 Room Air 03/15/17 15:45 89 106/51 03/15/17 15:30 78 90/53 03/15/17 15:25 36.4 74 18 113/55 (74) 95 03/15/17 15:15 73 98/51 03/15/17 15:00 79 105/54 03/15/17 14:45 73 98/51 03/15/17 14:24 79 113/43 03/15/17 13:35 36.4 91/49 (63) 03/15/17 08:31 36.6 73 18 93/57 (69) 92 03/15/17 08:09 Room Air Physical Exam: General-aaox3, obese Eyes-no scleral icterus ENT-mmm Neck-supple Lungs-clear anteriorly Heart-regular Abdomen-bs+ s/nt/nd Extremities-no edema Neuro-bedbound Current Inpatient Medications Medications (Trade) Dose Ordered Sig/Venkatesh Route Start Time Stop Time Status Last Admin Dose Admin Acetaminophen (Tylenol Tab) 650 mg Q4H PRN PO 03/13/17 15:30 04/12/17 15:29 Polyethylene (Miralax Powder Packet) 17 gm DAILY PRN PO 03/13/17 15:30 04/12/17 15:29 Ondansetron HCl (Zofran Inj) 4 mg Q6H PRN IV 03/13/17 15:30 04/12/17 15:29 Glucose (Glucose 40% Gel) 15-30 GRAMS 15 GRAMS... UD PRN PO 03/13/17 15:30 04/12/17 15:29 Glucose (Glucose Chew Tab) 4-8 Tablets 4 Tabl... UD PRN PO 03/13/17 15:30 04/12/17 15:29 Dextrose (Dextrose 50% 50ML Syringe) 25-50ML OF 50% DW IV FOR... UD PRN IV 03/13/17 15:30 04/12/17 15:29 Glucagon (Glucagon Inj) 1 mg UD PRN SQ 03/13/17 15:30 04/12/17 15:29 Allopurinol (Zyloprim Tab) 100 mg HS PO 03/13/17 21:00 04/12/17 20:59 03/15/17 22:00 100 MG Bupropion HCl (Wellbutrin-Sr Tab) 150 mg HS PO 03/13/17 21:00 04/12/17 20:59 03/15/17 22:00 150 MG Bupropion HCl (Wellbutrin-Sr Tab) 300 mg QAM PO 03/14/17 09:00 04/13/17 08:59 03/15/17 08:38 300 MG Diltiazem HCl (TIAzac CAP) 240 mg HS PO 03/13/17 21:00 04/12/17 20:59 03/14/17 20:34 240 MG Duloxetine HCl (Cymbalta Cap) 60 mg HS PO 03/13/17 21:00 04/12/17 20:59 03/15/17 22:10 60 MG Econazole Nitrate (Econazole Nitrate 1% Crm) 1 appln DAILY PRN EXT 03/13/17 17:15 04/12/17 17:14 Fexofenadine HCl (Anju Tab) 180 mg HS PO 03/13/17 21:00 04/12/17 20:59 03/15/17 21:56 180 MG Salmeterol Xinafoate/ Fluticasone (Advair Diskus 500/50 Inh) 1 puff BID INH 03/13/17 21:00 04/12/17 20:59 03/15/17 21:55 1 PUFF Levothyroxine Sodium (Synthroid Tab) 75 mcg DAILYBB PO 03/14/17 06:30 04/13/17 06:29 03/16/17 06:00 75 MCG Metoprolol Succinate (Toprol Xl Tab) 100 mg HS PO 03/13/17 21:00 04/12/17 20:59 03/14/17 20:33 100 MG Pravastatin Sodium (Pravachol Tab) 10 mg HS PO 03/13/17 21:00 04/12/17 20:59 03/15/17 21:57 10 MG Senna/Docusate Sodium (Senokot S Tab) 1 tab QAM PRN PO 03/13/17 17:15 04/12/17 17:14 Sevelamer HCl (Renagel Tab) 1,600 mg TIDM PO 03/14/17 08:00 04/13/17 07:59 03/15/17 18:50 1,600 MG Sevelamer HCl (Renagel Tab) 800 mg UD PRN PO 03/13/17 17:15 04/12/17 17:14 Lorazepam (Ativan Tab) 1 mg TID PRN PO 03/13/17 17:15 04/12/17 17:14 03/15/17 12:02 1 MG Insulin Glargine (Lantus Solostar Pen) SEE PROTOCOL Q12 [place] 03/13/17 21:00 04/12/17 20:59 03/15/17 22:04 20 UNITS Insulin Aspart (novoLOG ASPART) SLIDING SCALE If C... ACHS [place] 03/13/17 21:00 04/12/17 20:59 03/15/17 22:04 3 UNITS Miscellaneous Information (Consult Glycemic Management Pharmacy) 1 ea UD PRN N/A 03/13/17 18:06 04/12/17 18:05 Vancomycin HCl (Vancomycin Oral Soln) 125 mg QID PO 03/15/17 17:00 03/25/17 16:59 03/15/17 21:55 125 MG Raspberry (Raspberry Syrup 5ml Cup) 5 ml QID PO 03/15/17 17:00 03/29/17 16:59 03/15/17 21:55 5 ML Last 24 Hours Test 03/15/17 08:16 03/15/17 08:22 03/15/17 11:27 03/15/17 16:46 Prothrombin Time 22.2 SECONDS Prothromb Time International Ratio 2.0 Sodium Level 135 mmol/L Potassium Level 3.4 mmol/L Chloride Level 98 mmol/L Carbon Dioxide Level 24 mmol/L Anion Gap 13.0 mmol/L Blood Urea Nitrogen 65 mg/dl Creatinine 8.00 mg/dl Est Creatinine Clear Calc Drug Dose 10.3 ml/min Estimated GFR () 6.7 Estimated GFR (Non- 5.8 BUN/Creatinine Ratio 8.2 Random Glucose 146 mg/dl Calcium Level 8.9 mg/dl Bedside Glucose 135 mg/dl 216 mg/dl 130 mg/dl Test 03/15/17 20:59 03/16/17 04:44 Bedside Glucose 156 mg/dl Date/Time Source Procedure Growth Status 03/15/17 13:20 Stool C.difficile Toxin B Gene (PCR) - Final Positive for C. difficile toxin B gene Complete Assessment & Plan ESRD-fistula working well. bleeding likely from the elevated INR. pt also with anxiety while at dialysis and has prn ativan which he takes prior to dialysis treatment. normally dialyzes m-w-f at outpt unit. if medically cleared to go home, pt prefers to do dialysis in [place] [facility] [place] on his normal afternoon shift. if still needs to be in hospital, will plan on dialysis today, to get on his normal outpt schedule.
[2017-03-16 07:47] LABS: HEMATOCRIT 30.1 % (42-52); MEAN CELL VOLUME 92.3 fL (80-100); MEAN CORPUSCULAR HEMOGLOBIN 29.1 pg (25-34); MEAN CORPUSCULAR HGB CONC 31.6 g/dl (32-36); MEAN PLATELET VOLUME 8.7 fL (7.4-10.4); PLATELET COUNT 226 K/uL (130-400); RED BLOOD COUNT 3.26 M/uL (4.7-6.1); WHITE BLOOD COUNT 5.98 K/uL (4.8-10.8)
[2017-03-16 07:54] LABS: INR 1.4 (0.9-1.1); PROTHROMBIN TIME (PATIENT) 15.5 SECONDS (9.0-12.0)
[2017-03-16] MEDS: SEVELAMER HYDROCH 800 MG TAB PO SCH ×3 (08:08→19:37)
[2017-03-16 08:23] LABS: BUN/CREATININE RATIO 6.7 (10-20); CALCIUM 8.5 mg/dl (8.5-10.1); CREATININE 5.5 mg/dl (0.60-1.40); POTASSIUM 3.3 mmol/L (3.5-5.1)
[2017-03-16] MEDS: VANCOMYCIN HCL 125 MG/2.5ML SOLN PO SCH ×4 (09:53→21:02)
[2017-03-16] MEDS: FLUTICASONE/SALMETEROL (ADVAIR) 500/50 INH 14 PUFF INH SCH ×2 (09:53→21:01)
[2017-03-16] MEDS: RASPBERRY SYRUP 5 ML UDP PO SCH ×4 (09:53→21:02)
[2017-03-16] MEDS: BuPROPion SR 150 MG TABCR PO SCH ×2 (09:53→21:02)
[2017-03-16] MEDS: INSULIN ASPART 100 UNITS/ML 3 ML PEN SC SCH ×4 (09:59→21:05)
[2017-03-16] MEDS: INSULIN GLARGINE SOLOSTAR 100 UNITS/ML 3 ML PEN SC SCH ×2 (10:00→21:06)
[2017-03-16 10:02] LABS: HEPATITIS B AB NEG
[2017-03-16] MEDS ORDERED: EPOETIN ALFA 10,000 UNITS/ML VIAL IV. SCH (13:30)
[2017-03-16] MEDS: LORAZEPAM 1 MG TAB PO PRN (16:07)
--- NOTE | 2017-03-16 18:24 | Progress Note ---
Internal Med Progress Note Date of Service: Mar 16, 2017. Provider Documentation: SUBJECTIVE: Seen and examined at bedside. Currently getting HD States having 1 BM today diarrhea improving Denies chest pain, SOB, abd pain No bleeding issues today OBJECTIVE: Vital Signs-as noted below Physical Exam: General Appearance:Obese, no apparent distress Head: normocephalic, Atraumatic Eyes: normal inspection, EOMI, PERRL Neck: supple, Trachea midline Respiratory/Chest: Decreased breath sounds, CTA Cardiovascular: Distant heart sounds, No murmur Abdomen/GI:Soft, Non tender, Bowel sounds present Extremities/Musculoskelatal:normal inspection, no edema Neurologic/Psych:grossly no focal neurological deficits Skin: normal color, warm Lab data as noted below. ASSESSMENT & PLAN: COAGULOPATHY : on Coumadin for chronic Afib presents with INR ~6 , bleeding at AV fistular site at HD center while attempt to cannulate S/P VIt K INR now 2.0>>>>1.4 Elevated INR likely secondary to poor PO intake ( mentions pt has extremely poor appetite , complains of metallic taste with each food /poor clearance due to ESRD ) Needs close follow up with coagulation clinic on discharge Plan to resume Coumadin at low dose: 1 mg daily today ( was on Coumadin 2.5mg at home ) monitor INR Acute C.diff colitis: H/O C.diff previously Continue PO Vancomycin Day # 2 (Needs 14 day therapy) Neurogenic bladder: Traumatic catheterization: Monitor Hb Patient performs CIC at home Appreciate Urology help Patient and his prefers to leave the sanchez in place for now Needs follow up with his Urologist in 1 week upon discharge ESRD ON HD : follows with Dr Scherer missed HD on Tuesday for bleeding at fistula site appreciate input form Nephrology /vascular surgery -left arm AV fistula appears to be functioning small amount of hematoma due to elevated INR HD per Nephrology ANXIETY DISORDER : mentions pt gets anxiety attach each time getting dialysis as they cannulate the fistula pt hates needles , gets panic attack with blood draw has been ordered for PRN Ativan prior to HD requesting for Ativan PRN during other days of week as pt appears to be restless , irritated and can not sleep with anticipation of next HD reviewed [place] site -pt has been getting intermittent dose of Ativan 1 mg for anxiety from his family physician last prescription filled was on 02/26/17 for Ativan 1 mg BID prn #20 tablets pt given script for 0.5 mg PO BID PRN , asked to use 1/2 of the prior tables as with ESRD pt may need less dose but more frequent specially after dialysis pt will need to follow up with Psychiatry as out pt for significant anxiety and depression issues DVT Px on Coumadin DISPOSITION lives at home , bed bound requires complete care will need transport arrangement to return home on discharge social service consulted for discharge planning follows with [facility] Nephrology follow up with Dr Aura Scherer Vital Signs: Date Time Temp Pulse Resp B/P (MAP) Pulse Ox O2 Delivery O2 Flow Rate FiO2 03/16/17 18:00 111 102/52 03/16/17 17:43 104 105/54 03/16/17 17:30 92 100/45 03/16/17 17:15 97 109/63 03/16/17 17:00 93 105/48 03/16/17 16:45 96 106/52 03/16/17 16:30 99 114/57 03/16/17 16:15 103 108/61 03/16/17 16:00 98 106/55 03/16/17 16:00 Room Air 03/16/17 15:55 36.5 101/54 (70) 03/16/17 15:18 36.6 95 20 108/64 (79) 95 Room Air 03/16/17 08:00 Room Air 03/16/17 07:38 36.5 104 17 95/63 (74) 98 Room Air 03/16/17 00:57 Room Air CPAP 03/15/17 23:20 36.9 86 18 100/64 (76) 03/15/17 21:30 Room Air 03/15/17 18:31 36.5 100 96/43 (60) Lab Results: Results Past 24 Hours Test 03/15/17 20:59 03/16/17 07:19 03/16/17 07:33 03/16/17 11:41 Range/Units Bedside Glucose 156 132 184 70-99 mg/dl White Blood Count 5.98 4.8-10.8 K/uL Red Blood Count 3.26 4.7-6.1 M/uL Hemoglobin 9.5 14.0-18.0 g/dL Hematocrit 30.1 42-52 % Mean Corpuscular Volume 92.3 80-100 fL Mean Corpuscular Hemoglobin 29.1 25-34 pg Mean Corpuscular Hemoglobin Concent 31.6 32-36 g/dl RDW Standard Deviation 56.3 36.4-46.3 fL RDW Coefficient of Variation 16.9 11.5-14.5 % Platelet Count 226 130-400 K/uL Mean Platelet Volume 8.7 7.4-10.4 fL Nucleated RBC Absolute Count (auto) 0.03 0-0 K/uL Nucleated Red Blood Cells % 0.4 % Prothrombin Time 15.5 9.0-12.0 SECONDS Prothromb Time International Ratio 1.4 0.9-1.1 Sodium Level 137 136-145 mmol/L Potassium Level 3.3 3.5-5.1 mmol/L Chloride Level 99 98-107 mmol/L Carbon Dioxide Level 28 21-32 mmol/L Anion Gap 10.0 3-11 mmol/L Blood Urea Nitrogen 37 7-18 mg/dl Creatinine 5.50 0.60-1.40 mg/dl Est Creatinine Clear Calc Drug Dose 15.0 ml/min Estimated GFR () 10.6 Estimated GFR (Non- 9.1 BUN/Creatinine Ratio 6.7 10-20 Random Glucose 127 70-99 mg/dl Calcium Level 8.5 8.5-10.1 mg/dl Hepatitis B Surface Antigen NEG NEG Hepatitis B Surface Antibody NEG Test 03/16/17 15:43 Range/Units Bedside Glucose 126 70-99 mg/dl
[2017-03-16] MEDS ORDERED: POTASSIUM CHLORIDE 10 MEQ TABCR PO ONE (18:45)
[2017-03-16] MEDS ORDERED: WARFARIN SOD 1 MG TAB PO ONE (18:45)
[2017-03-16] MEDS: METOPROLOL SUCC 50MG EXT REL TAB PO SCH ×2 (21:00→21:02)
[2017-03-16] MEDS: FEXOFENADINE HCL 180 MG TAB PO SCH (21:02)
[2017-03-16] MEDS: DILTIAZEM HCL 120 MG EXT REL CAP PO SCH (21:02)
[2017-03-16] MEDS: PRAVASTATIN SOD 10 MG TAB PO SCH (21:02)
[2017-03-16] MEDS: ALLOPURINOL 100 MG TAB PO SCH (21:02)
[2017-03-16] MEDS: DULOXETINE HCL 60 MG CAP PO SCH (21:02)
[2017-03-17] MEDS: LEVOTHYROXINE 75 MCG TAB PO SCH (05:57)
[2017-03-17 07:02] VITALS: BP 86/55; PULSE 110; TEMP 36.6; O2SAT 94
[2017-03-17 07:53] LABS: HEMATOCRIT 29.8 % (42-52)
[2017-03-17 08:05] LABS: INR 1.3 (0.9-1.1); PROTHROMBIN TIME (PATIENT) 14.6 SECONDS (9.0-12.0)
[2017-03-17 08:29] LABS: BUN/CREATININE RATIO 5.4 (10-20); CALCIUM 7.3 mg/dl (8.5-10.1); POTASSIUM 3.3 mmol/L (3.5-5.1)
[2017-03-17] MEDS: RASPBERRY SYRUP 5 ML UDP PO SCH ×2 (08:39→12:44)
[2017-03-17] MEDS: VANCOMYCIN HCL 125 MG/2.5ML SOLN PO SCH ×2 (08:39→12:44)
[2017-03-17] MEDS: FLUTICASONE/SALMETEROL (ADVAIR) 500/50 INH 14 PUFF INH SCH (08:39)
[2017-03-17] MEDS: SEVELAMER HYDROCH 800 MG TAB PO SCH ×2 (08:39→12:44)
[2017-03-17] MEDS: BuPROPion SR 150 MG TABCR PO SCH (08:40)
[2017-03-17] MEDS: INSULIN GLARGINE SOLOSTAR 100 UNITS/ML 3 ML PEN SC SCH (08:44)
[2017-03-17] MEDS: INSULIN ASPART 100 UNITS/ML 3 ML PEN SC SCH ×2 (08:45→12:47)
[2017-03-17 12:05] VITALS: BP 99/63; PULSE 97; O2SAT 96
--- NOTE | 2017-03-17 12:14 | Progress Note ---
Internal Med Progress Note Date of Service: Mar 17, 2017. Provider Documentation: SUBJECTIVE: Seen and examined at bedside. Doing well today Got HD yesterday Denies diarrhea Denies chest pain, SOB, abd pain No bleeding issues today Hb stable Family at bedside OBJECTIVE: Vital Signs-as noted below Physical Exam: General Appearance:Obese, no apparent distress Head: normocephalic, Atraumatic Eyes: normal inspection, EOMI, PERRL Neck: supple, Trachea midline Respiratory/Chest: Decreased breath sounds, CTA Cardiovascular: Distant heart sounds, No murmur Abdomen/GI:Soft, Non tender, Bowel sounds present Extremities/Musculoskelatal:normal inspection, no edema Neurologic/Psych:grossly no focal neurological deficits Skin: normal color, warm Lab data as noted below. ASSESSMENT & PLAN: COAGULOPATHY : on Coumadin for chronic Afib presents with INR ~6 , bleeding at AV fistular site at HD center while attempt to cannulate S/P VIt K INR now 2.0>>>>1.4>>>1.3 Elevated INR likely secondary to poor PO intake ( mentions pt has extremely poor appetite , complains of metallic taste with each food /poor clearance due to ESRD ) Needs close follow up with coagulation clinic on discharge continue Coumadin: 1 mg daily today ( was on Coumadin 2.5mg at home ) monitor INR Acute C.diff colitis: H/O C.diff previously Continue PO Vancomycin Day # 3 (Needs 14 day therapy) Neurogenic bladder: Traumatic catheterization: Monitor Hb Patient performs CIC at home Appreciate Urology help Patient and his prefers sanchez to be discontinued follow up with his Urologist on 03/22/17 at 2:45pm Urine culture pending ESRD ON HD : follows with Dr Scherer missed HD on Tuesday for bleeding at fistula site appreciate input form Nephrology /vascular surgery -left arm AV fistula appears to be functioning small amount of hematoma due to elevated INR HD per Nephrology ANXIETY DISORDER : mentions pt gets anxiety attach each time getting dialysis as they cannulate the fistula pt hates needles , gets panic attack with blood draw has been ordered for PRN Ativan prior to HD requesting for Ativan PRN during other days of week as pt appears to be restless , irritated and can not sleep with anticipation of next HD [place] -pt has been getting intermittent dose of Ativan 1 mg for anxiety from his family physician last prescription filled was on 02/26/17 for Ativan 1 mg BID prn #20 tablets pt given script for 0.5 mg PO BID PRN , asked to use 1/2 of the prior tables as with ESRD pt may need less dose but more frequent specially after dialysis pt will need to follow up with Psychiatry as out pt for significant anxiety and depression issues DVT Px on Coumadin DISPOSITION lives at home , bed bound requires complete care Plan to discharge home today Follow up with your Primary care physician Dr. Oviedo on 03/24/17 at 12:45pm Follow up with your Urologist on 03/22/17 at 2:45pm Follow up with your your Psychiatrist for anxiety/depression as advised Follow up with your Entry Operator for Hemodialysis Complete the antibiotic (Vancomycin) course as prescribed Seek immediate medical attention if your symptoms reoccur or worsen Get PT/INR checked tomorrow(03/18/17) and follow up with Coumadin clinic for further Coumadin dosage Vital Signs: Date Time Temp Pulse Resp B/P (MAP) Pulse Ox O2 Delivery O2 Flow Rate FiO2 03/17/17 12:05 97 99/63 (75) 96 03/17/17 08:00 Room Air 03/17/17 07:02 36.6 110 20 86/55 (65) 94 Room Air 03/17/17 00:05 Room Air 03/16/17 23:32 36.5 104 20 95/61 (72) 92 Room Air 03/16/17 21:08 110 88/49 (62) 03/16/17 19:09 36.7 97 112/58 (76) 03/16/17 19:00 99 105/52 03/16/17 18:44 105 114/57 03/16/17 18:30 114 107/62 03/16/17 18:15 102 109/54 03/16/17 18:00 111 102/52 03/16/17 17:43 104 105/54 03/16/17 17:30 92 100/45 03/16/17 17:15 97 109/63 03/16/17 17:00 93 105/48 03/16/17 16:45 96 106/52 03/16/17 16:30 99 114/57 03/16/17 16:15 103 108/61 03/16/17 16:00 98 106/55 03/16/17 16:00 Room Air 03/16/17 15:55 36.5 101/54 (70) 03/16/17 15:18 36.6 95 20 108/64 (79) 95 Room Air Lab Results: Results Past 24 Hours Test 03/16/17 15:43 03/16/17 20:33 03/17/17 07:22 03/17/17 07:32 Range/Units Bedside Glucose 126 85 121 70-99 mg/dl Hemoglobin 9.2 14.0-18.0 g/dL Hematocrit 29.8 42-52 % Prothrombin Time 14.6 9.0-12.0 SECONDS Prothromb Time International Ratio 1.3 0.9-1.1 Sodium Level 143 136-145 mmol/L Potassium Level 3.3 3.5-5.1 mmol/L Chloride Level 109 98-107 mmol/L Carbon Dioxide Level 25 21-32 mmol/L Anion Gap 9.0 3-11 mmol/L Blood Urea Nitrogen 22 7-18 mg/dl Creatinine 4.00 0.60-1.40 mg/dl Est Creatinine Clear Calc Drug Dose 20.6 ml/min Estimated GFR () 15.6 Estimated GFR (Non- 13.4 BUN/Creatinine Ratio 5.4 10-20 Random Glucose 91 70-99 mg/dl Calcium Level 7.3 8.5-10.1 mg/dl Magnesium Level 2.0 1.8-2.4 mg/dl Test 03/17/17 11:19 Range/Units Bedside Glucose 196 70-99 mg/dl Microbiology Results 03/17/17 Urine Culture, Received Pending
[2017-03-17] MEDS ORDERED: VNCS125 PO (12:18)
--- NOTE | 2017-03-17 12:21 | Discharge Summary ---
Discharge Summary Date of Service Mar 17, 2017. Discharge Summary Admission Date: Mar 13, 2017 at 15:23 Discharge Date: Mar 17, 2017 Discharge Disposition: Home with services Principal Diagnosis: Coagulopathy, Acute C.diff colitis, ESRD ON HD Procedures: Left UR usd: No DVT within the upper extremity. The fistula is patent cxr: Cardiomegaly. Otherwise negative study Consultations: Nephrology, Vascular surgery, Urology Pending Studies/Follow-Up: Follow up with your Primary care physician Dr. Oviedo on 03/24/17 at 12:45pm Follow up with your Urologist on 03/22/17 at 2:45pm Follow up with your your Psychiatrist for anxiety/depression as advised Follow up with your Fabrication Lead for Hemodialysis Complete the antibiotic (Vancomycin) course as prescribed Seek immediate medical attention if your symptoms reoccur or worsen Get PT/INR checked tomorrow(03/18/17) and follow up with Coumadin clinic for further Coumadin dosage Your Urine culture is pending. Please follow up with your doctor for results Medication Reconciliation New Medications: Vancomycin HCl (Vancomycin HCl) 125 Mg/2.5 Ml Susp 125 MG PO QID for 11 Days Continued Medications: Albuterol Soln (Proventil 0.083% 2.5MG/3ML) Nebu 2.5 MG INH QID PRN for SOB/Wheezing, EA Allopurinol (Zyloprim *) 100 Mg Tab 100 MG PO DAILY, 0 Refills B-Complex W/ C & Folic Acid (Renal Vitamin 0.8 mg) 1 Tab Tab 1 PO HS Bupropion (Wellbutrin Sr) 150 Mg Ertab 300 MG PO QAM, TAB Bupropion (Wellbutrin Sr) 150 Mg Ertab 150 MG PO HS, TAB Diltiazem Hcl Ext Rel (Tiazac) 240 Mg Capcr 240 MG PO DAILY, CAP Duloxetine HCl (Cymbalta) 60 Mg Cap 60 MG PO HS Econazole Nitrate 1% (Spectazole 1%) Cr 1 DOSE PO DAILY PRN for PRN Ergocalciferol (Vitamin D) 50,000 Interunit Cap 1 CAP PO WK Fexofenadine Hcl (Anju Allergy) 180 Mg Tab 1 TAB PO HS for 14 Days, TAB 2 Refills Fluticasone Prop/Salmeterol (Advair Diskus 500/50 60 Dose) 1 Ea Aerp 1 PUFF INH BID, INHALER Insulin Aspart (Novolog Penfill) 100 Unit/Ml Inj 0 SQ UD Insulin Glargine (Lantus) Vial 60 UNITS SC HS, VIAL Levothyroxine Sodium (Levothyroxine Sodium) 75 Mcg Tab 1 TAB PO QAM for 90 Days, #90 TAB 3 Refills Lorazepam (Ativan) 1 Mg Tab 1 MG PO TID PRN for Anxiety/Agitation, TAB Metoprolol Succinate (Toprol Xl) 100 Mg Tab 1 TAB PO HS Pravastatin Sodium (Pravachol) 20 Mg Tab 10 MG PO HS, TAB Senna/Docusate Sod (Senokot S) 1 Tab Tab 1 TAB PO QAM PRN for Constipation, TAB Sevelamer Carbonate (Renvela) 800 Mg Tab 2 TAB PO TID for 90 Days, #540 TAB 3 Refills 2 WITH EACH MEAL AND 1 WITH EACH SNACK Warfarin Sodium (Coumadin) 1 Mg Tab 2.5 MG PO HS for 30 Days, TAB 5 Refills [Nepo ] () 1 CAN HS Admission Information HPI (per Admitting provider): 77 yo M who undergoes HD MWF went for HD on Tuesday and was unable to complete 4 hour dialysis session 2/2 a nonworking fistula. His give most of the history and states that he had been lying with his hand over his head and when he brought his L arm back down, there was "infiltration" of the IV that when recannulated, began bleeding. There has been reports of temporary bleeding from the fistula site with the last few HD sessions and just this morning he had some blood in his mouth that resolved when he flushed it out with water. INR was found to be 6.9, coumadin was held and he was given vitamin K. He has otherwise been asymptomatic except for some nausea and occasional vomiting with eating, for which he has been using Zofran at home. And then his also reports a foul odor and description of his urine in the last few weeks and states that he no longer self-catheterizes now that he is on HD. We discussed placing a Sanchez and the thought that was a good idea. The patient does report some lower abdominal discomfort on palpation over his bladder area and the reports a decreased urine output in the last few weeks, also. The patient denies weight gain, shortness of breath, chest pain, fevers, chills, diarrhea, blood per rectum or other symptoms at this time. Of note, he was here in December for a coil placement in the fistula when it was not working; this coil is palpable and not in the right place distal to the fistula. Physical Exam (per Admitting): General Appearance: no apparent distress, + obese Head: normocephalic, atraumatic Eyes: normal inspection, sclerae normal Neck: no JVD, trachea midline Respiratory/Chest: lungs clear, normal breath sounds, no respiratory distress, no accessory muscle use Cardiovascular: regular rate, rhythm, no edema, no gallop, no murmur, normal peripheral pulses Abdomen/GI: normal bowel sounds, soft, + tenderness (suprapubic jerald. ) Back: + pertinent finding (could not evaluate back as patient cannot turn on his own and uses Elroy lift. ) Extremities/Musculoskelatal: no pedal edema, + pertinent finding (LUE fistula with palpable thrill; palpable coil in place just distal to elbow. Large area of bruising and hardness over L biceps. No fluctuance) Neurologic/Psych: senior planner II-XII nml as tested, alert, normal mood/affect, oriented x 3, + pertinent finding (decreased strength generally) Skin: normal color, warm/dry, + pertinent finding (RLE lateral malleolar wound) Hospital Course COAGULOPATHY : on Coumadin for chronic Afib presents with INR ~6 , bleeding at AV fistular site at HD center while attempt to cannulate S/P VIt K INR now 2.0>>>>1.4>>>1.3 Elevated INR likely secondary to poor PO intake ( mentions pt has extremely poor appetite , complains of metallic taste with each food /poor clearance due to ESRD ) Needs close follow up with coagulation clinic on discharge continue Coumadin: 1 mg daily today ( was on Coumadin 2.5mg at home ) monitor INR Acute C.diff colitis: H/O C.diff previously Continue PO Vancomycin Day # 3 (Needs 14 day therapy) Neurogenic bladder: Traumatic catheterization: Monitor Hb Patient performs CIC at home Appreciate Urology help Patient and his prefers sanchez to be discontinued follow up with his Urologist on 03/22/17 at 2:45pm Urine culture pending ESRD ON HD : follows with Dr Scherer missed HD on Tuesday for bleeding at fistula site appreciate input form Nephrology /vascular surgery -left arm AV fistula appears to be functioning small amount of hematoma due to elevated INR HD per Nephrology ANXIETY DISORDER : mentions pt gets anxiety attach each time getting dialysis as they cannulate the fistula pt hates needles , gets panic attack with blood draw has been ordered for PRN Ativan prior to HD requesting for Ativan PRN during other days of week as pt appears to be restless , irritated and can not sleep with anticipation of next HD reviewed [place] site -pt has been getting intermittent dose of Ativan 1 mg for anxiety from his family physician last prescription filled was on 02/26/17 for Ativan 1 mg BID prn #20 tablets pt given script for 0.5 mg PO BID PRN , asked to use 1/2 of the prior tables as with ESRD pt may need less dose but more frequent specially after dialysis pt will need to follow up with Psychiatry as out pt for significant anxiety and depression issues DVT Px on Coumadin DISPOSITION lives at home , bed bound requires complete care Plan to discharge home today Follow up with your Primary care physician Dr. Oviedo on 03/24/17 at 12:45pm Follow up with your Urologist on 03/22/17 at 2:45pm Follow up with your your Psychiatrist for anxiety/depression as advised Follow up with your Fabrication Lead for Hemodialysis Complete the antibiotic (Vancomycin) course as prescribed Seek immediate medical attention if your symptoms reoccur or worsen Get PT/INR checked tomorrow(03/18/17) and follow up with Coumadin clinic for further Coumadin dosage Total time spent on discharge = 36 minutes This includes examination of the patient, discharge planning, medication reconciliation, and communication with other providers. Discharge Instructions Discharge Instructions Date of Service Mar 17, 2017. Admission Reason for Admission: Esrd (End Stage Renal Disease) On Dialysis Discharge Discharge Diagnosis / Problem: Coagulopathy, Acute C.diff colitis Discharge Goals Goal(s): Decrease discomfort, Improve function Activity Recommendations Activity Limitations: resume your previous activity . Instructions / Follow-Up Instructions / Follow-Up Follow up with your Primary care physician Dr. Oviedo on 03/24/17 at 12:45pm Follow up with your Urologist on 03/22/17 at 2:45pm Follow up with your your Psychiatrist for anxiety/depression as advised Follow up with your Fabrication Lead for Hemodialysis Complete the antibiotic (Vancomycin) course as prescribed Seek immediate medical attention if your symptoms reoccur or worsen Get PT/INR checked tomorrow(03/18/17) and follow up with Coumadin clinic for further Coumadin dosage Your Urine culture is pending. Please follow up with your doctor for results Current Hospital Diet Patient's current hospital diet: Diabetes Type 2 Diet, Renal Diet, Low Sodium Diet (2gm Na) Discharge Diet Recommended Diet: Low Sodium Diet (2gm Na), Diabetes Type 2 Diet, Renal Diet Pending Studies Studies pending at discharge: yes List of pending studies: Urine culture Laboratory Results Hemoglobin A1c Test 03/14/17 06:46 Range/Units Estimated Average Glucose 163 mg/dl Hemoglobin A1c 7.3 H 4.5-5.6 % Medical Emergencies . Who to Call and When: Medical Emergencies: If at any time you feel your situation is an emergency, please call 911 immediately. . Non-Emergent Contact Non-Emergency issues call your: Primary Care Provider, Urologist Call Non-Emergent contact if: you have a fever, your pain is not controlled, your pain is worsening, your pain is unusual for you, your pain is concerning you, you have any medication questions . . "Provider Documentation" section prepared by Kamlesh Khan. . VTE Core Measure Inpt VTE Proph given/why not?: Warfarin (Coumadin), SCD's <Electronically signed by Kamlesh Khan MD> Signed: 03/17/17 1221 Signed: The status of this report is Signed * If report status is Draft, the document has not been finalized by the responsible provider.
[2017-03-17 13:40] VITALS: BP 99/63; PULSE 97; TEMP 36.6; O2SAT 96
[2017-03-17] MEDS ORDERED: WARFARIN SOD 1 MG TAB PO SCH (16:00)
== END 2017-03-17 14:30 | disposition home health service (06) | DRG 813 ==
LOC: C.MS2W 14:48 → OBSVTOIN 15:23
PROVIDERS: ADMIT Hospitalist; ATTEND Internal Medicine
DX: D68.8 Other specified coagulation defects (principal); N18.6 End stage renal disease; A04.7 Enterocolitis due to Clostridium difficile; S37.39XA Other injury of urethra, initial encounter; I50.32 Chronic diastolic (congestive) heart failure; Z68.42 Body mass index [BMI] 45.0-49.9, adult; R63.8 Other symptoms and signs concerning food and fluid intake; R33.9 Retention of urine, unspecified; I48.0 Paroxysmal atrial fibrillation; F41.9 Anxiety disorder, unspecified; E11.22 Type 2 diabetes mellitus with diabetic chronic kidney disease; D63.1 Anemia in chronic kidney disease; N31.9 Neuromuscular dysfunction of bladder, unspecified; E03.9 Hypothyroidism, unspecified; F32.9 Major depressive disorder, single episode, unspecified; J44.9 Chronic obstructive pulmonary disease, unspecified; E55.9 Vitamin D deficiency, unspecified; G47.33 Obstructive sleep apnea (adult) (pediatric); E66.9 Obesity, unspecified; Z79.899 Other long term (current) drug therapy; Z79.01 Long term (current) use of anticoagulants; Z79.4 Long term (current) use of insulin; Z99.2 Dependence on renal dialysis; Z85.46 Personal history of malignant neoplasm of prostate; Z82.49 Family history of ischemic heart disease and other diseases of the circulatory system; Z82.0 Family history of epilepsy and other diseases of the nervous system; Z83.79 Family history of other diseases of the digestive system; Y84.6 Urinary catheterization as the cause of abnormal reaction of the patient, or of later complication, without mention of misadventure at the time of the procedure; Y92.239 Unspecified place in hospital as the place of occurrence of the external cause